=== PATIENT | female | born 1940 | race Caucasian/White ===

== ENCOUNTER 2016-11-21 18:10 | Emergency (ER) | payer MEDICARE, BC, OTHER ==
[2016-11-21] MEDS ORDERED: Famotidine 20 MG/2 ML SDV IVPUSH ONE (18:16)
[2016-11-21] MEDS ORDERED: Aspirin 81 MG Tab.Chew PO ONE (18:16)
[2016-11-21] MEDS ORDERED: Sodium Chloride 0.9% 2.5 ML Syringe FLUSH PRN (18:16)
[2016-11-21] MEDS ORDERED: Albuterol/Ipratropium 3.0-0.5 MG/3 ML Neb Soln NEB ONE (18:20)
[2016-11-21] MEDS ORDERED: HYDROmorphone 1 MG/ML Syringe IVPUSH ONE (18:38)
--- NOTE | 2016-11-21 18:47 | EDM.PDOC ---
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 Past medical history: As per history of present illness and as reviewed below otherwise noncontributory. Surgical history: As per history of present illness and as reviewed below otherwise noncontributory. Social history: No reported history of drug or alcohol abuse. Family history: As per history of present illness and as reviewed below otherwise noncontributory. Physical exam: Alert and oriented female who states she coughs more when she is lying on her back. HEENT: Atraumatic, normocehpalic, pupils reactive, negative for conjunctival pallor or scleral icterus, mucous membranes moist, throat clear, neck supple, nontender, trachea midline. Lungs: Clear to auscultation, breath sounds equal bilaterally, chest non tender. Slightly diminished Heart: S1S2, regular, negative for clicks, rubs, or JVD. Abdomen: Soft, nondistended, nontender. Negative for masses or hepatossplenmegaly. Negative for costovertebral tenderness. Pelvis: Stable nontender. Genitourinary: Deferred. Rectal: Deferred Extremities: Atraumatic, negative for cords or calf pain. Neurovascular unremarkable. Neuro: Awake, alert, oriented. Cranial nerves II through XII unremarkable. Cerebellum unremarkable. Motor and sensory unremarkable throughout. Exam nonfocal. Diagnostics: [CBC CMP amylase lipase chest x-ray EKG] Therapeutics: [Dilaudid] Impression: [Cough and back pain] Plan: [Home Tessalon Perles for cough Pain medication that you have at home Follow-up with your primary care provider next week ] Definitive disposition and diagnosis as appropriate pending reevaluation and review of above. Onset: Today, Sudden Duration: Hour(s):, Getting Worse Location: Reports: Chest Quality: Reports: Ache, Pressure Severity: Moderate Worsens with: Reports: Other (laying on back) Associated Symptoms: Reports: Cough - Related Data Allergies Allergy/AdvReac Type Severity Reaction Status Date / Time codeine Allergy Hives Verified 11/21/16 19:05 Home Meds: Home Meds Benzonatate [Tessalon Perles] 100 mg PO QID #20 cap 11/21/16 [Rx] Capsaicin/Menthol [Salonpas Gel-Patch Hot] 11/21/16 [History] Clopidogrel [Plavix] 11/21/16 [History] Metoprolol Tartrate 11/21/16 [History] PARoxetine HCl [Paroxetine HCl] 11/21/16 [History] Simvastatin [Zocor] 11/21/16 [History] oxyCODONE ER [OxyCONTIN] 10 mg 11/21/16 [History] ED ROS GENERAL - Review of Systems Review Of Systems: ROS reveals no pertinent complaints other than HPI. ED EXAM, GENERAL - Physical Exam Exam: See Below (see dictation) Course - Vital Signs Last Recorded V/S: Last Vital Signs Temp 36.2 C 11/21/16 18:24 Pulse 88 11/21/16 19:11 Resp 17 11/21/16 19:11 BP 150/96 H 11/21/16 19:11 Pulse Ox 95 11/21/16 19:11 - Orders/Labs/Meds Orders: Active Orders 24 hr Category Date Time Status Cardiac Monitoring [RC] . DIRECTED Care 11/21/16 18:16 Active EKG Documentation Completion [RC] STAT Care 11/21/16 18:17 Active Oxygen Therapy [RC] ASDIRECTED Care 11/21/16 18:16 Active Pulse Oximetry [RC] ASDIRECTED Care 11/21/16 18:16 Active RT Aerosol Therapy [RC] ASDIRECTED Care 11/21/16 18:20 Active Chest 1V Frontal [CR] Stat Exams 11/21/16 18:16 Taken Sodium Chloride 0.9% [Saline Flush] Med 11/21/16 18:16 Active 10 ml FLUSH ASDIRECTED PRN Sodium Chloride 0.9% [Saline Flush] Med 11/21/16 18:16 Active 2.5 ml FLUSH ASDIRECTED PRN Saline Lock Insert [OM.PC] Stat Oth 11/21/16 18:16 Ordered Medication Orders Sodium Chloride (Saline Flush) 10 ml FLUSH ASDIRECTED PRN PRN Reason: Keep Vein Open Last Admin: 11/21/16 19:08 Dose: 10 ml Admin: 11/21/16 19:06 Dose: 10 ml Sodium Chloride (Saline Flush) 2.5 ml FLUSH ASDIRECTED PRN PRN Reason: Keep Vein Open Labs: Laboratory Tests 11/21/16 11/21/16 11/21/16 Range/Units 18:25 18:25 18:25 WBC 8.25 (4.0-11.0) K/uL RBC 4.43 (4.30-5.90) M/uL Hgb 13.0 (12.0-16.0) g/dL Hct 40.0 (36.0-46.0) % MCV 90.3 (80.0-98.0) fL MCH 29.3 (27.0-32.0) pg MCHC 32.5 (31.0-37.0) g/dL RDW Std Deviation 45.3 (28.0-62.0) fl RDW Coeff of Tray 14 (11.0-15.0) % Plt Count 400 (150-400) K/uL MPV 9.20 (7.40-12.00) fL Neut % (Auto) 60.6 (48.0-80.0) % Lymph % (Auto) 24.8 (16.0-40.0) % [place] % (Auto) 9.1 (0.0-15.0) % Eos % (Auto) 5.0 (0.0-7.0) % Baso % (Auto) 0.5 (0.0-1.5) % Neut # (Auto) 5.0 (1.4-5.7) K/uL Lymph # (Auto) 2.1 (0.6-2.4) K/uL [place] # (Auto) 0.8 (0.0-0.8) K/uL Eos # (Auto) 0.4 (0.0-0.7) K/uL Baso # (Auto) 0.0 (0.0-0.1) K/uL Nucleated RBC % 0.0 /100WBC Nucleated RBCs # 0 K/uL Sodium 142 (136-146) mmol/L Potassium 3.9 (3.5-5.1) mmol/L Chloride 108 (98-110) mmol/L Carbon Dioxide 23 (21-31) mmol/L BUN 14 (6.0-23.0) mg/dL Creatinine 0.9 (0.6-1.5) mg/dL Est Cr Clr Drug Dosing TNP Estimated GFR (MDRD) > 60.0 ml/min Glucose 107 (60-110) mg/dL Calcium 9.5 (8.8-10.8) mg/dL Total Bilirubin 0.6 (0.1-1.5) mg/dL AST 58 H (5-40) IU/L ALT 52 (8-54) IU/L Alkaline Phosphatase 81 (40-150) Troponin I < 0.10 (0.0-0.29) NG/ML Total Protein 7.6 (6.0-8.0) g/dL Albumin 3.8 (3.4-4.8) g/dL Globulin 3.8 H (2.0-3.5) g/dL Albumin/Globulin Ratio 1.0 L (1.3-2.8) Amylase 90 (10-90) U/L Lipase 52 (7-80) U/L Meds: Medications Generic Name Dose Route Start Last Admin Trade Name Freq PRN Reason Stop Dose Admin Sodium Chloride 10 ml 11/21/16 18:16 11/21/16 19:08 Saline Flush FLUSH 10 ml ASDIRECTED PRN Administration Keep Vein Open Sodium Chloride 2.5 ml 11/21/16 18:16 Saline Flush FLUSH ASDIRECTED PRN Keep Vein Open Discontinued Medications Generic Name Dose Route Start Last Admin Trade Name Freq PRN Reason Stop Dose Admin Albuterol/Ipratropium 3 ml 11/21/16 18:20 11/21/16 18:27 Duoneb 3.0-0.5 Mg/3 Ml NEB 11/21/16 18:21 3 ml ONETIME ONE Administration Aspirin 324 mg 11/21/16 18:16 11/21/16 18:28 Aspirin PO 11/21/16 18:17 Not Given ONETIME ONE Famotidine 20 mg 11/21/16 18:16 11/21/16 18:27 Pepcid IVPUSH 11/21/16 18:17 20 mg ONETIME ONE Administration Hydromorphone HCl 1 mg 11/21/16 18:38 11/21/16 19:09 Dilaudid IVPUSH 11/21/16 18:39 1 mg ONETIME ONE Administration Morphine Sulfate 2 mg 11/21/16 19:02 Morphine IV 11/21/16 19:03 ONETIME ONE Departure - Departure Time of Disposition: 19:38 Disposition: Home, Self-Care 01 Condition: Good Clinical Impression: Muscle strain, Cough - Discharge Information Prescriptions: Benzonatate [Tessalon Perles] 100 mg PO QID #20 cap Forms: ED Department Discharge Additional Instructions: The following information is given to patients seen in the emergency department who are being discharged to home. This information is to outline your options for follow-up care. We provide all patients seen in our emergency department with a follow-up referral. The need for follow-up, as well as the timing and circumstances, are variable depending upon the specifics of your emergency department visit. If you don't have a primary care physician on staff, we will provide you with a referral. We always advise you to contact your personal physician following an emergency department visit to inform them of the circumstance of the visit and for follow-up with them and/or the need for any referrals to a consulting specialist. The emergency department will also refer you to a specialist when appropriate. This referral assures that you have the opportunity for followup care with a specialist. All of these measure are taken in an effort to provide you with optimal care, which includes your followup. Under all circumstances we always encourage you to contact your private physician who remains a resource for coordinating your care. When calling for followup care, please make the office aware that this follow-up is from your recent emergency room visit. If for any reason you are refused follow-up, please contact the [facility] emergency department at and asked to speak to the emergency department charge nurse. No gross abnormalities were noted on your examination today Do have a slight cough You do have a muscle strain to your back Tessalon Perles can be utilized to help with the cough prescription has been written Your pain medications you have at home are fine to use - My Orders Last 24 Hours: My Active Orders 11/21/16 18:16 Cardiac Monitoring [RC] . DIRECTED Oxygen Therapy [RC] ASDIRECTED Pulse Oximetry [RC] ASDIRECTED Chest 1V Frontal [CR] Stat Sodium Chloride 0.9% [Saline Flush] 10 ml FLUSH ASDIRECTED PRN Sodium Chloride 0.9% [Saline Flush] 2.5 ml FLUSH ASDIRECTED PRN Saline Lock Insert [OM.PC] Stat 11/21/16 18:17 EKG Documentation Completion [RC] STAT 11/21/16 18:20 RT Aerosol Therapy [RC] ASDIRECTED - Assessment/Plan Last 24 Hours: My Active Orders 11/21/16 18:16 Cardiac Monitoring [RC] . DIRECTED Oxygen Therapy [RC] ASDIRECTED Pulse Oximetry [RC] ASDIRECTED Chest 1V Frontal [CR] Stat Sodium Chloride 0.9% [Saline Flush] 10 ml FLUSH ASDIRECTED PRN Sodium Chloride 0.9% [Saline Flush] 2.5 ml FLUSH ASDIRECTED PRN Saline Lock Insert [OM.PC] Stat 11/21/16 18:17 EKG Documentation Completion [RC] STAT 11/21/16 18:20 RT Aerosol Therapy [RC] ASDIRECTED
[2016-11-21] MEDS ORDERED: Morphine 10 MG/ML Syringe IV ONE (19:02)
[2016-11-21] MEDS: Sodium Chloride 0.9% 10 ML Syringe FLUSH PRN ×2 (19:06→19:08)
[2016-11-21 19:08] LABS: CHLORIDE,CL 108 mmol/L (98-110); SODIUM,NA 142 mmol/L (136-146)
[2016-11-21 20:03] VITALS: BP 116/78
--- NOTE | 2016-11-22 09:09 | CR ---
EXAM DATE: 11/21/16 PATIENT'S AGE: 76 Patient: GAMALIEL SHERIFF Facility: [place], [place] Site . Site : [id number] Study: XRay Chest [id number] 6:38:45 PM Ordering Physician: Doctor Vallejo Final Report: INDICATION: Chest pain. TECHNIQUE: Chest radiograph 1 view COMPARISON: 05/08/2011. FINDINGS: Interval median sternotomy and CABG with new thoracic aortic stent graft. Lungs are clear. No pulmonary edema pattern, pleural effusion, or pneumothorax. IMPRESSION: 1. Interval postsurgical changes in the chest with interval stent graft involving descending thoracic aorta. No acute abnormality evident. No congestive heart failure pattern. Dictated by Tip Delong MD @ 11/21/2016 7:12:21 PM Dictated by: Tip Delong MD @ 11/21/2016 19:12:26 (Electronic Signature) Report Signed by Proxy. [email or web address]
== END 2016-11-21 20:00 | disposition home or self-care (01) ==
LOC: MW.ED 18:10
DX: S39.012A Strain of muscle, fascia and tendon of lower back, initial encounter (principal); R05 Cough; Z88.5 Allergy status to narcotic agent; Z95.1 Presence of aortocoronary bypass graft; X58.XXXA Exposure to other specified factors, initial encounter
CPT/HCPCS: 36415; 71010; 80053; 82150; 83690; 84484; 85025; 96374; 96375; 99284; J1170

== ENCOUNTER 2017-09-16 19:40 | Emergency (ER) | payer MEDICARE, BC, OTHER ==
--- NOTE | 2017-09-16 19:51 | EDM.PDOC ---
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 Naik in [place], [place] Patient sees Dr. Garcia in [place] for cardiology Review of Systems: As per history of present illness and below otherwise all systems reviewed and negative. Past medical history: As per history of present illness and as reviewed below otherwise noncontributory. Surgical history: As per history of present illness and as reviewed below otherwise noncontributory. Social history: No reported history of drug or alcohol abuse. Family history: As per history of present illness and as reviewed below otherwise noncontributory. Physical exam: Alert female who is alert and oriented has shortness of breath with speaking full sentences. HEENT: Atraumatic, normocehpalic, pupils reactive, negative for conjunctival pallor or scleral icterus, mucous membranes moist, throat clear, neck supple, nontender, trachea midline. Lungs: Clear to auscultation, breath sounds equal bilaterally, chest non tender. Heart: S1S2, regular, negative for clicks, rubs, or JVD. Abdomen: Soft, nondistended, nontender. Negative for masses or hepatossplenmegaly. Negative for costovertebral tenderness. Pelvis: Stable nontender. Genitourinary: Deferred. Rectal: Deferred Extremities: Atraumatic, negative for cords or calf pain. Minor edema bilaterally to her legs Neurovascular unremarkable. Neuro: Awake, alert, oriented. Cranial nerves II through XII unremarkable. Cerebellum unremarkable. Motor and sensory unremarkable throughout. Exam nonfocal. Patient improved after respiratory treatment. Increased air exchange Discussed her condition with her daughter at bedside QUESTIONS were answered to their satisfaction Diagnostics: []CBC CMP amylase lipase EKG chest x-ray: Therapeutics: []DuoNeb Impression: []Shortness of breath CHF Pedal edema UTI Plan: [] Discharge home Follow up with Dr. Garcia Prescription given for Macrobid 1 twice a day 10 days Prescription admission for Ventolin inhaler 2 puffs 3 times a day when necessary shortness of breath Stand on your scale daily F opportunity half pounds take one Lasix Prescription for Lasix 20 mg one daily as instructed number of 10 no refill Return to the emergency department as directed and discussed Definitive disposition and diagnosis as appropriate pending reevaluation and review of above. Onset: Gradual Duration: Day(s): - Related Data Allergies Allergy/AdvReac Type Severity Reaction Status Date / Time codeine Allergy Hives Verified 09/16/17 19:53 Home Meds: Home Meds Metoprolol Tartrate mg PO BID 11/21/16 [History] PARoxetine HCl [Paroxetine HCl] 11/21/16 [History] Simvastatin [Zocor] 11/21/16 [History] Past Medical History HEENT History: Reports: None Cardiovascular History: Reports: Aneurysm, Bypass, High Cholesterol, Hypertension, Other (See Below) Other Cardiovascular History: was at [place]. one week ago and had a "new procedure where they tied off 4 aortic aneurysms" Respiratory History: Reports: Other (See Below) Other Respiratory History: wears O2 at 1L per NC at night Gastrointestinal History: Reports: None Genitourinary History: Reports: None LOAD BLOCKER History: Reports: None Musculoskeletal History: Reports: None Neurological History: Reports: None Psychiatric History: Reports: Anxiety, Depression Endocrine/Metabolic History: Reports: None Hematologic History: Reports: None Immunologic History: Reports: None Oncologic (Cancer) History: Reports: None Dermatologic History: Reports: None - Infectious Disease History Infectious Disease History: Reports: None - Past Surgical History Head Surgeries/Procedures: Reports: None HEENT Surgical History: Reports: None Respiratory Surgical History: Reports: None GI Surgical History: Reports: None Female Surgical History: Reports: None Neurological Surgical History: Reports: None Musculoskeletal Surgical History: Reports: None Social & Family History - Family History Family Medical History: Noncontributory ED ROS GENERAL - Review of Systems Review Of Systems: ROS reveals no pertinent complaints other than HPI. ED EXAM, GENERAL - Physical Exam Exam: See Below (See dictation) EKG INTERPRETATION EKG Date: 09/16/17 Rhythm: NSR Comparison: No Change Course - Vital Signs Last Recorded V/S: Last Vital Signs Temp 35.8 C 09/16/17 19:55 Pulse 95 09/16/17 20:32 Resp 20 09/16/17 20:32 BP 148/61 H 09/16/17 20:32 Pulse Ox 95 09/16/17 20:32 - Orders/Labs/Meds Orders: Active Orders 24 hr Category Date Time Status Cardiac Monitoring [RC] . DIRECTED Care 09/16/17 19:52 Active EKG Documentation Completion [RC] STAT Care 09/16/17 19:52 Active Oxygen Therapy, ED [RC] ASDIRECTED Care 09/16/17 19:52 Active RT Aerosol Therapy [RC] ASDIRECTED Care 09/16/17 20:51 Active Chest 1V Frontal [CR] Stat Exams 09/16/17 19:52 Taken CULTURE URINE [RM] Stat Lab 09/16/17 20:35 Ordered UA W/MICROSCOPIC [URIN] Stat Lab 09/16/17 20:35 Ordered Sodium Chloride 0.9% [Saline Flush] Med 09/16/17 19:52 Active 10 ml FLUSH ASDIRECTED PRN Sodium Chloride 0.9% [Saline Flush] Med 09/16/17 19:52 Active 2.5 ml FLUSH ASDIRECTED PRN Saline Lock Insert [OM.PC] Stat Oth 09/16/17 19:52 Ordered Medication Orders Sodium Chloride (Saline Flush) 10 ml FLUSH ASDIRECTED PRN PRN Reason: Keep Vein Open Sodium Chloride (Saline Flush) 2.5 ml FLUSH ASDIRECTED PRN PRN Reason: Keep Vein Open Labs: Laboratory Tests 09/16/17 09/16/17 09/16/17 Range/Units 20:00 20:00 20:00 WBC 7.82 (4.0-11.0) K/uL RBC 4.42 (4.30-5.90) M/uL Hgb 10.4 L (12.0-16.0) g/dL Hct 33.9 L (36.0-46.0) % MCV 76.7 L (80.0-98.0) fL MCH 23.5 L (27.0-32.0) pg MCHC 30.7 L (31.0-37.0) g/dL RDW Std Deviation 44.4 (28.0-62.0) fl RDW Coeff of Tray 16 H (11.0-15.0) % Plt Count 281 (150-400) K/uL MPV 9.20 (7.40-12.00) fL Neut % (Auto) 58.3 (48.0-80.0) % Lymph % (Auto) 29.8 (16.0-40.0) % [place] % (Auto) 7.8 (0.0-15.0) % Eos % (Auto) 3.6 (0.0-7.0) % Baso % (Auto) 0.5 (0.0-1.5) % Neut # (Auto) 4.6 (1.4-5.7) K/uL Lymph # (Auto) 2.3 (0.6-2.4) K/uL [place] # (Auto) 0.6 (0.0-0.8) K/uL Eos # (Auto) 0.3 (0.0-0.7) K/uL Baso # (Auto) 0.0 (0.0-0.1) K/uL Nucleated RBC % 0.0 /100WBC Nucleated RBCs # 0 K/uL INR 1.00 Sodium 141 (136-145) mmol/L Potassium 4.2 (3.5-5.1) mmol/L Chloride 109 H (98-107) mmol/L Carbon Dioxide 24.2 (21.0-32.0) mmol/L BUN 16 (7.0-18.0) mg/dL Creatinine 1.0 (0.6-1.0) mg/dL Est Cr Clr Drug Dosing 38.97 mL/min Estimated GFR (MDRD) 53.8 ml/min Glucose 117 H (74-106) mg/dL Calcium 8.9 (8.5-10.1) mg/dL Total Bilirubin 0.5 (0.2-1.0) mg/dL AST 30 (15-37) IU/L ALT 40 (14-63) IU/L Alkaline Phosphatase 82 (46-116) U/L Troponin I < 0.050 (0.000-0.056) ng/mL B-Natriuretic Peptide (<100) PG/ML Total Protein 7.0 (6.4-8.2) g/dL Albumin 3.5 (3.4-5.0) g/dL Globulin 3.5 (2.0-3.5) g/dL Albumin/Globulin Ratio 1.0 L (1.3-2.8) Amylase 50 (25-115) U/L Lipase 113 (73-393) U/L Urine Color Urine Appearance Urine pH (5.0-8.0) Ur Specific [place] (1.001-1.035) Urine Protein (NEGATIVE) mg/dL Urine Glucose (UA) (NEGATIVE) mg/dL Urine Ketones (NEGATIVE) mg/dL Urine Occult Blood (NEGATIVE) Urine Nitrite (NEGATIVE) Urine Bilirubin (NEGATIVE) Urine Urobilinogen (<2.0) EU/dL Ur Leukocyte Esterase (NEGATIVE) Urine RBC (0-2/HPF) Urine WBC (0-5/HPF) Ur Epithelial Cells (NONE-FEW) Urine Bacteria (NEGATIVE) 09/16/17 09/16/17 Range/Units 20:00 20:35 WBC (4.0-11.0) K/uL RBC (4.30-5.90) M/uL Hgb (12.0-16.0) g/dL Hct (36.0-46.0) % MCV (80.0-98.0) fL MCH (27.0-32.0) pg MCHC (31.0-37.0) g/dL RDW Std Deviation (28.0-62.0) fl RDW Coeff of Tray (11.0-15.0) % Plt Count (150-400) K/uL MPV (7.40-12.00) fL Neut % (Auto) (48.0-80.0) % Lymph % (Auto) (16.0-40.0) % [place] % (Auto) (0.0-15.0) % Eos % (Auto) (0.0-7.0) % Baso % (Auto) (0.0-1.5) % Neut # (Auto) (1.4-5.7) K/uL Lymph # (Auto) (0.6-2.4) K/uL [place] # (Auto) (0.0-0.8) K/uL Eos # (Auto) (0.0-0.7) K/uL Baso # (Auto) (0.0-0.1) K/uL Nucleated RBC % /100WBC Nucleated RBCs # K/uL INR Sodium (136-145) mmol/L Potassium (3.5-5.1) mmol/L Chloride (98-107) mmol/L Carbon Dioxide (21.0-32.0) mmol/L BUN (7.0-18.0) mg/dL Creatinine (0.6-1.0) mg/dL Est Cr Clr Drug Dosing mL/min Estimated GFR (MDRD) ml/min Glucose (74-106) mg/dL Calcium (8.5-10.1) mg/dL Total Bilirubin (0.2-1.0) mg/dL AST (15-37) IU/L ALT (14-63) IU/L Alkaline Phosphatase (46-116) U/L Troponin I (0.000-0.056) ng/mL B-Natriuretic Peptide 161 H (<100) PG/ML Total Protein (6.4-8.2) g/dL Albumin (3.4-5.0) g/dL Globulin (2.0-3.5) g/dL Albumin/Globulin Ratio (1.3-2.8) Amylase (25-115) U/L Lipase (73-393) U/L Urine Color YELLOW Urine Appearance SLT CLOUDY Urine pH 6.0 (5.0-8.0) Ur Specific [place] 1.020 (1.001-1.035) Urine Protein NEGATIVE (NEGATIVE) mg/dL Urine Glucose (UA) NEGATIVE (NEGATIVE) mg/dL Urine Ketones NEGATIVE (NEGATIVE) mg/dL Urine Occult Blood SMALL H (NEGATIVE) Urine Nitrite POSITIVE H (NEGATIVE) Urine Bilirubin NEGATIVE (NEGATIVE) Urine Urobilinogen 0.2 (<2.0) EU/dL Ur Leukocyte Esterase SMALL (NEGATIVE) Urine RBC 0-1 (0-2/HPF) Urine WBC 15-18 (0-5/HPF) Ur Epithelial Cells MODERATE (NONE-FEW) Urine Bacteria 1+ H (NEGATIVE) Meds: Medications Generic Name Dose Route Start Last Admin Trade Name Freq PRN Reason Stop Dose Admin Sodium Chloride 10 ml 09/16/17 19:52 Saline Flush FLUSH ASDIRECTED PRN Keep Vein Open Sodium Chloride 2.5 ml 09/16/17 19:52 Saline Flush FLUSH ASDIRECTED PRN Keep Vein Open Discontinued Medications Generic Name Dose Route Start Last Admin Trade Name Freq PRN Reason Stop Dose Admin Albuterol/Ipratropium 3 ml 05/21/18 20:51 09/16/17 21:16 Duoneb 3.0-0.5 Mg/3 Ml NEB 09/16/17 20:52 3 ml ONETIME ONE Administration Departure - Departure Time of Disposition: 21:45 Disposition: Home, Self-Care 01 Condition: Good Clinical Impression: Shortness of breath Congestive heart failure Qualifiers: Heart failure type: unspecified Heart failure chronicity: acute Qualified Code( s): I50.9 - Heart failure, unspecified UTI (urinary tract infection) Qualifiers: Urinary tract infection type: acute cystitis Hematuria presence: with hematuria Qualified Code(s): N30.01 - Acute cystitis with hematuria - Discharge Information Instructions: Shortness of Breath, Adult, [id number], Antibiotic Medicine, Adult, Urinary Tract Infection, Adult, [id number] Referrals: PCP,None [Primary Care Provider] - Forms: ED Department Discharge Additional Instructions: The following information is given to patients seen in the emergency department who are being discharged to home. This information is to outline your options for follow-up care. We provide all patients seen in our emergency department with a follow-up referral. The need for follow-up, as well as the timing and circumstances, are variable depending upon the specifics of your emergency department visit. If you don't have a primary care physician on staff, we will provide you with a referral. We always advise you to contact your personal physician following an emergency department visit to inform them of the circumstance of the visit and for follow-up with them and/or the need for any referrals to a consulting specialist. The emergency department will also refer you to a specialist when appropriate. This referral assures that you have the opportunity for followup care with a specialist. All of these measure are taken in an effort to provide you with optimal care, which includes your followup. Under all circumstances we always encourage you to contact your private physician who remains a resource for coordinating your care. When calling for followup care, please make the office aware that this follow-up is from your recent emergency room visit. If for any reason you are refused follow-up, please contact the [facility] emergency department at and asked to speak to the emergency department charge nurse. You had a DuoNeb for your shortness of breath EKG was unremarkable SHe had some congestive heart failure Prescription has been written for Macrobid 100 mg twice a day 10 days Prescription written for Diflucan 150 mg one tablet at sign of yeast infection take a second tablet 3 days later Prescription for Lasix 20 milligrams one tablet in the morning if up to and a half pounds Trial with some DONG stockings on at night off in the morning Return to the emergency department as directed and discussed Follow-up with Dr. Garcia for reevaluation See your doctor in [place] this week - My Orders Last 24 Hours: My Active Orders 09/16/17 19:52 Cardiac Monitoring [RC] . DIRECTED EKG Documentation Completion [RC] STAT Oxygen Therapy, ED [RC] ASDIRECTED Chest 1V Frontal [CR] Stat Sodium Chloride 0.9% [Saline Flush] 10 ml FLUSH ASDIRECTED PRN Sodium Chloride 0.9% [Saline Flush] 2.5 ml FLUSH ASDIRECTED PRN Saline Lock Insert [OM.PC] Stat 09/16/17 20:35 CULTURE URINE [RM] Stat UA W/MICROSCOPIC [URIN] Stat 09/16/17 20:51 RT Aerosol Therapy [RC] ASDIRECTED - Assessment/Plan Last 24 Hours: My Active Orders 09/16/17 19:52 Cardiac Monitoring [RC] . DIRECTED EKG Documentation Completion [RC] STAT Oxygen Therapy, ED [RC] ASDIRECTED Chest 1V Frontal [CR] Stat Sodium Chloride 0.9% [Saline Flush] 10 ml FLUSH ASDIRECTED PRN Sodium Chloride 0.9% [Saline Flush] 2.5 ml FLUSH ASDIRECTED PRN Saline Lock Insert [OM.PC] Stat 09/16/17 20:35 CULTURE URINE [RM] Stat UA W/MICROSCOPIC [URIN] Stat 09/16/17 20:51 RT Aerosol Therapy [RC] ASDIRECTED
[2017-09-16] MEDS ORDERED: Sodium Chloride 0.9% 2.5 ML Syringe FLUSH PRN (19:52)
[2017-09-16] MEDS ORDERED: Sodium Chloride 0.9% 10 ML Syringe FLUSH PRN (19:52)
[2017-09-16 20:38] LABS: CHLORIDE,CL 109 mmol/L (98-107); SODIUM,NA 141 mmol/L (136-145)
[2017-09-16] MEDS ORDERED: Albuterol/Ipratropium 3.0-0.5 MG/3 ML Neb Soln NEB ONE (20:51)
[2017-09-17 00:36] VITALS: BP 145/64
--- NOTE | 2017-09-17 14:38 | CR ---
EXAM DATE: 09/16/17 PATIENT'S AGE: 77 Patient: GAMALIEL SHERIFF Facility: [place], [place] Site . Site : [id number] Study: XRay Chest [id number]/21/[id number] 9:06:31 PM Ordering Physician: Doctor Vallejo Final Report: INDICATION: Shortness of breath. COMPARISON: 11/21/2016. FINDINGS/IMPRESSION: Lungs are clear of acute infiltrate and no acute intrathoracic abnormalities are demonstrated. Upper normal heart size appears unchanged. Postoperative changes of median sternotomy, CABG, and descending aortic endograft placement are again demonstrated. Dictated by Kang Frey MD @ 09/16/2017 9:19:38 PM Dictated by: Kang Frey MD @ 09/16/2017 21:19:53 (Electronic Signature) Report Signed by Proxy. [facility]
== END 2017-09-16 22:00 | disposition home or self-care (01) ==
LOC: MW.ED 19:40
DX: I11.0 Hypertensive heart disease with heart failure (principal); I50.9 Heart failure, unspecified; N30.01 Acute cystitis with hematuria; R60.0 Localized edema; I25.810 Atherosclerosis of coronary artery bypass graft(s) without angina pectoris; E78.00 Pure hypercholesterolemia, unspecified; F41.9 Anxiety disorder, unspecified; F32.9 Major depressive disorder, single episode, unspecified; Z88.5 Allergy status to narcotic agent; Z79.899 Other long term (current) drug therapy
CPT/HCPCS: 36415; 71045; 71045-26; 80053; 81001; 82150; 83690; 83880; 84484; 85025; 85610; 87086; 87088; 87186; 93005; 94640; 99285-25

== ENCOUNTER 2017-10-18 20:11 | Emergency (ER) | payer MEDICARE, BC, OTHER ==
--- NOTE | 2017-10-18 20:53 | EDM.PDOC ---
ED HPI GENERAL MEDICAL PROBLEM - General Chief Complaint: Skin Complaint Stated Complaint: SWOLLEN ARM FROM SHOT Time Seen by Provider: 10/18/17 20:44 - History of Present Illness INITIAL COMMENTS - FREE TEXT/NARRATIVE: HISTORY AND PHYSICAL: History of present illness: The patient is a 77-year-old female with a history of hypertension hypercholesterolemia coronary artery disease with CABG who follows at [facility] and received her pneumonia shot yesterday at the clinic. She says that after the shot she had a very sore left arm and that she noticed some redness yesterday but today it seemed worse and she was concerned. She no longer has any pain in the arm but there is still pinkish redness and she wanted to be evaluated. She has no systemic complaints and has no inability to use her left arm. She has no neurosensory changes distally no weakness no numbness or tingling. She is only concerned about the visual appearance of it and thought he should get it checked. Review of systems: As per history of present illness and below otherwise all systems reviewed and negative. Past medical history: As per history of present illness and as reviewed below otherwise noncontributory. Surgical history: As per history of present illness and as reviewed below otherwise noncontributory. Social history: No reported history of drug or alcohol abuse. Family history: As per history of present illness and as reviewed below otherwise noncontributory. Physical exam: General: Well-developed well-nourished female who is nontoxic and vital signs were noted by me HEENT: Atraumatic, normocephalic, negative for conjunctival pallor or scleral icterus, mucous membranes moist, throat clear, neck supple, nontender, trachea midline. Lungs: Clear to auscultation, breath sounds equal bilaterally, chest nontender. Heart: S1S2, regular rate and rhythm no overt murmurs Abdomen: Soft, nondistended, nontender. NABS. Pelvis: For Genitourinary: Deferred. Rectal: Deferred. Extremities: Atraumatic, full range of motion without defects or deformities. There is some pinkish erythema noted at her soft tissue anterior humeral area which does not extend proximally past the inferior deltoid or distally past the elbow. It is soft and I marked it with a marker. The compartment is nontender and there is no fluctuance. Patient has full range of motion of this extremity without defects deformities or tenderness. The legs are negative for cords or calf pain. Neurovascular unremarkable. Neuro: Awake, alert, oriented. Cranial nerves II through XII unremarkable. Cerebellum unremarkable. Motor and sensory unremarkable throughout. Exam nonfocal. Diagnostics: [] Therapeutics: [] I discussed with the patient taking [id number] Benadryl and I marked the area to observe it closely for any changes. As there is no pain and she has no systemic complaints we will treat this as a localized reaction. Impression: Localized reaction to pneumonia shot stable Definitive disposition and diagnosis as appropriate pending reevaluation and review of above. - Related Data Allergies Allergy/AdvReac Type Severity Reaction Status Date / Time codeine Allergy Agitation Verified 10/18/17 20:39 Home Meds: Home Meds Metoprolol Tartrate 0 mg PO BID 11/21/16 [History] Simvastatin [Zocor] 0 mg PO ASDIRECTED 11/21/16 [History] Past Medical History HEENT History: Reports: None Cardiovascular History: Reports: Aneurysm, Bypass, High Cholesterol, Hypertension, Other (See Below) Other Cardiovascular History: was at [place]. one week ago and had a "new procedure where they tied off 4 aortic aneurysms" Respiratory History: Reports: Other (See Below) Other Respiratory History: wears O2 at 1L per NC at night Gastrointestinal History: Reports: None Genitourinary History: Reports: None MISSILE INSPECTOR History: Reports: None Musculoskeletal History: Reports: None Neurological History: Reports: None Psychiatric History: Reports: Anxiety, Depression Endocrine/Metabolic History: Reports: None Hematologic History: Reports: None Immunologic History: Reports: None Oncologic (Cancer) History: Reports: None Dermatologic History: Reports: None - Infectious Disease History Infectious Disease History: Reports: None - Past Surgical History Head Surgeries/Procedures: Reports: None HEENT Surgical History: Reports: None Respiratory Surgical History: Reports: None GI Surgical History: Reports: None Female Surgical History: Reports: None Neurological Surgical History: Reports: None Musculoskeletal Surgical History: Reports: None Social & Family History - Family History Family Medical History: Noncontributory ED ROS GENERAL - Review of Systems Review Of Systems: ROS reveals no pertinent complaints other than HPI. ED EXAM, SKIN/RASH Exam: See Below (See dictation) Course - Vital Signs Last Recorded V/S: Last Vital Signs Temp 36.4 C 10/18/17 20:36 Pulse 90 10/18/17 20:36 Resp 20 10/18/17 20:36 BP 144/66 H 10/18/17 20:36 Pulse Ox 96 10/18/17 20:36 Departure - Departure Time of Disposition: 20:51 Disposition: Home, Self-Care 01 Condition: Good Clinical Impression: Local reaction to immunization Qualifiers: Encounter type: initial encounter Qualified Code(s): T88.1XXA - Other complications following immunization, not elsewhere classified, initial encounter - Discharge Information Referrals: PCP,None [Primary Care Provider] - Additional Instructions: The following information is given to patients seen in the emergency department who are being discharged to home. This information is to outline your options for follow-up care. We provide all patients seen in our emergency department with a follow-up referral. The need for follow-up, as well as the timing and circumstances, are variable depending upon the specifics of your emergency department visit. If you don't have a primary care physician on staff, we will provide you with a referral. We always advise you to contact your personal physician following an emergency department visit to inform them of the circumstance of the visit and for follow-up with them and/or the need for any referrals to a consulting specialist. The emergency department will also refer you to a specialist when appropriate. This referral assures that you have the opportunity for followup care with a specialist. All of these measure are taken in an effort to provide you with optimal care, which includes your followup. Under all circumstances we always encourage you to contact your private physician who remains a resource for coordinating your care. When calling for followup care, please make the office aware that this follow-up is from your recent emergency room visit. If for any reason you are refused follow-up, please contact the [facility] emergency department at and ask to speak to the emergency department charge nurse. [facility] Primary care- Internal Medicine and Family [address] [id number] Please continue to monitor the area of redness and elevate the area and place ice as you choose. Use [id number] Benadryl for the next 1-2 days. Return to ER as needed and as discussed and call and follow-up with your clinic doctor or one of ours next week.
[2017-10-18 21:10] VITALS: BP 142/56
== END 2017-10-18 21:12 | disposition home or self-care (01) ==
LOC: MW.ED 20:11
DX: T88.1XXA Other complications following immunization, not elsewhere classified, initial encounter (principal); L53.0 Toxic erythema; I10 Essential (primary) hypertension
CPT/HCPCS: 99282

== ENCOUNTER 2019-05-26 18:16 | Observation (INO) | payer MEDICARE, OTHER ==
--- NOTE | 2019-05-26 18:20 | EDM.PDOC ---
ED HPI GENERAL MEDICAL PROBLEM - General Stated Complaint: HEART PROBLEM Time Seen by Provider: 05/26/19 18:19 Source of Information: Reports: Patient - History of Present Illness INITIAL COMMENTS - FREE TEXT/NARRATIVE: HISTORY AND PHYSICAL: History of present illness: [Presents with syncopal episode She had a episode of dizziness earlier today, she and her son were going [place] the [place] on [facility] she was walking towards the casino and had a syncopal episode she does not recall the event she fell to the ground no evidence of head injury however she did collapse she does not recall the incident Arrival she is alert interactive no fever nausea vomiting chills sweats no chest pain shortness of breath headache dizziness or palpitation no bowel or urine symptoms ] Review of systems: As per history of present illness and below otherwise all systems reviewed and negative. Past medical history: As per history of present illness and as reviewed below otherwise noncontributory. Surgical history: As per history of present illness and as reviewed below otherwise noncontributory. Social history: No reported history of drug or alcohol abuse. Family history: As per history of present illness and as reviewed below otherwise noncontributory. Physical exam: HEENT: Atraumatic, normocephalic, pupils reactive, negative for conjunctival pallor or scleral icterus, mucous membranes moist, throat clear, neck supple, nontender, trachea midline. Lungs: Clear to auscultation, breath sounds equal bilaterally, chest nontender. Heart: S1S2, regular, negative for clicks, rubs, or JVD. Abdomen: Soft, nondistended, nontender. Negative for masses or hepatosplenomegaly. Negative for costovertebral tenderness. Pelvis: Stable nontender. Genitourinary: Deferred. Rectal: Deferred. Extremities: Atraumatic, negative for cords or calf pain. Neurovascular unremarkable. Neuro: Awake, alert, oriented. Cranial nerves II through XII unremarkable. Cerebellum unremarkable. Motor and sensory unremarkable throughout. Exam nonfocal. Diagnostics: [See CMP UA troponin INR Chest 1 view Pelvis [address] head no contrast ] Therapeutics: [Saline kcl 20meq ] Impression: [Syncope Chronic history baseline ] Definitive disposition and diagnosis as appropriate pending reevaluation and review of above. Abdomen Pain Score (Numeric/FACES): 7 - Related Data Allergies Allergy/AdvReac Type Severity Reaction Status Date / Time codeine Allergy Agitation Verified 10/18/17 20:39 Home Meds: Home Meds Metoprolol Tartrate 0 mg PO BID 11/21/16 [History] Simvastatin [Zocor] 0 mg PO ASDIRECTED 11/21/16 [History] Past Medical History HEENT History: Reports: None Cardiovascular History: Reports: Aneurysm, Bypass, High Cholesterol, Hypertension, Other (See Below) Other Cardiovascular History: was at [place]. one week ago and had a "new procedure where they tied off 4 aortic aneurysms" Respiratory History: Reports: Other (See Below) Other Respiratory History: wears O2 at 1L per [place] at night Gastrointestinal History: Reports: None Genitourinary History: Reports: None SPORT INTERNSHIP History: Reports: None Musculoskeletal History: Reports: None Neurological History: Reports: None Psychiatric History: Reports: Anxiety, Depression Endocrine/Metabolic History: Reports: None Hematologic History: Reports: None Immunologic History: Reports: None Oncologic (Cancer) History: Reports: None Dermatologic History: Reports: None - Infectious Disease History Infectious Disease History: Reports: None - Past Surgical History Head Surgeries/Procedures: Reports: None HEENT Surgical History: Reports: None Respiratory Surgical History: Reports: None GI Surgical History: Reports: None Female Surgical History: Reports: None Neurological Surgical History: Reports: None Musculoskeletal Surgical History: Reports: None Social & Family History - Family History Family Medical History: Noncontributory - Caffeine Use Caffeine Use: Reports: Coffee ED ROS GENERAL - Review of Systems Review Of Systems: See Below ED EXAM, GENERAL - Physical Exam Exam: See Below Course - Vital Signs Last Recorded V/S: Last Vital Signs Temp 97.8 F 05/26/19 18:22 Pulse 110 H 05/26/19 18:22 Resp 22 H 05/26/19 18:22 BP 156/77 H 05/26/19 18:22 Pulse Ox 96 05/26/19 18:22 - Orders/Labs/Meds Orders: Active Orders 24 hr Category Date Time Status EKG Documentation Completion [RC] STAT Care 05/26/19 18:18 Active UA RFX BARAK AND CULT IF INDIC [URIN] Stat Lab 05/26/19 18:18 Ordered Sodium Chloride 0.9% [Normal Saline] 1,000 ml Med 05/26/19 18:30 Active IV STAT Medication Orders Sodium Chloride (Normal Saline) 1,000 mls @ 125 mls/hr IV STAT CARA Labs: Laboratory Tests 05/26/19 05/26/19 05/26/19 Range/Units 18:23 18:23 18:23 WBC 7.52 (4.0-11.0) K/uL RBC 4.67 (4.30-5.90) M/uL Hgb 9.8 L (12.0-16.0) g/dL Hct 34.0 L (36.0-46.0) % MCV 72.8 L (80.0-98.0) fL MCH 21.0 L (27.0-32.0) pg MCHC 28.8 L (31.0-37.0) g/dL RDW Std Deviation 51.8 (28.0-62.0) fl RDW Coeff of Tray 20 H (11.0-15.0) % Plt Count 274 (150-400) K/uL MPV 9.10 (7.40-12.00) fL Neut % (Auto) 67.1 (48.0-80.0) % Lymph % (Auto) 22.9 (16.0-40.0) % [place] % (Auto) 6.0 (0.0-15.0) % Eos % (Auto) 3.5 (0.0-7.0) % Baso % (Auto) 0.5 (0.0-1.5) % Neut # (Auto) 5.1 (1.4-5.7) K/uL Lymph # (Auto) 1.7 (0.6-2.4) K/uL [place] # (Auto) 0.5 (0.0-0.8) K/uL Eos # (Auto) 0.3 (0.0-0.7) K/uL Baso # (Auto) 0.0 (0.0-0.1) K/uL Nucleated RBC % 0.0 /100WBC Nucleated RBCs # 0 K/uL INR 0.98 Sodium 144 (136-145) mmol/L Potassium 2.6 L (3.5-5.1) mmol/L Chloride 103 (98-107) mmol/L Carbon Dioxide 25.1 (21.0-32.0) mmol/L BUN 12 (7.0-18.0) mg/dL Creatinine 1.0 (0.6-1.0) mg/dL Est Cr Clr Drug Dosing TNP Estimated GFR (MDRD) 53.5 ml/min Glucose 194 H (74-106) mg/dL Calcium 8.8 (8.5-10.1) mg/dL Total Bilirubin 0.6 (0.2-1.0) mg/dL AST 25 (15-37) IU/L ALT 26 (14-63) IU/L Alkaline Phosphatase 85 (46-116) U/L Troponin I < 0.050 (0.000-0.056) ng/mL Total Protein 7.4 (6.4-8.2) g/dL Albumin 3.6 (3.4-5.0) g/dL Globulin 3.8 (2.6-4.0) g/dL Albumin/Globulin Ratio 0.9 (0.9-1.6) Meds: Medications Generic Name Dose Route Start Last Admin Trade Name Freq PRN Reason Stop Dose Admin Sodium Chloride 1,000 mls @ 125 mls/hr 05/26/19 18:30 Normal Saline IV STAT CARA Discontinued Medications Generic Name Dose Route Start Last Admin Trade Name Freq PRN Reason Stop Dose Admin Potassium Chloride 20 meq 05/26/19 19:09 Klor-Con M20 PO 05/26/19 19:10 ONETIME ONE Departure - Departure Time of Disposition: 19:16 Disposition: Refer to Observation Condition: Fair Clinical Impression: Syncope and collapse - Discharge Information Referrals: PCP,Unobtain [Primary Care Provider] - Sepsis Event Note - Focused Exam Vital Signs: Vital Signs Temp Pulse Resp BP Pulse Ox 05/26/19 18:22 97.8 F 110 H 22 H 156/77 H 96 Date Exam was Performed: 05/26/19 Time Exam was Performed: 19:16 - My Orders Last 24 Hours: My Active Orders 05/26/19 18:18 EKG Documentation Completion [RC] STAT UA RFX BARAK AND CULT IF INDIC [URIN] Stat 05/26/19 18:30 Sodium Chloride 0.9% [Normal Saline] 1,000 ml IV STAT - Assessment/Plan Last 24 Hours: My Active Orders 05/26/19 18:18 EKG Documentation Completion [RC] STAT UA RFX BARAK AND CULT IF INDIC [URIN] Stat 05/26/19 18:30 Sodium Chloride 0.9% [Normal Saline] 1,000 ml IV STAT
[2019-05-26] MEDS ORDERED: Sodium Chloride 0.9% 1,000 ML IV SCH (18:30)
[2019-05-26 18:57] LABS: BLOOD UREA NITROGEN,BUN 12 mg/dL (7.0-18.0); CARBON DIOXIDE,CO2 25.1 mmol/L (21.0-32.0); CHLORIDE,CL 103 mmol/L (98-107); GLUCOSE RANDOM 194 mg/dL (74-106); POTASSIUM,K 2.6 mmol/L (3.5-5.1); SODIUM,NA 144 mmol/L (136-145)
--- NOTE | 2019-05-26 19:03 | CR ---
Pelvis: AP view of the pelvis was obtained. Comparison: No prior pelvis exam. Aortoiliac stent is noted. Mild joint space narrowing is seen within both hips. Sacroiliac joints appear normal. Mild vascular calcification is seen. No acute fracture or other abnormality is seen. Impression: 1. Findings as noted above. 2. Nothing acute is appreciated on AP pelvis study. Diagnostic code #2 This report was dictated in [place] Standard Time
--- NOTE | 2019-05-26 19:03 | CT ---
Head CT Technique: Multiple axial sections through the brain were obtained. Intravenous contrast was not utilized. Comparison: No prior intracranial imaging is available. Findings: Ventricles along with basal cisterns and sulci over the convexities are within normal limits for the patient's age. No known midline is seen.. Bone window settings were reviewed which shows no acute calvarial abnormality. Mastoid moderate mucosal thickening seen within hypoplastic mastoid sinuses. Minimal mucosal thickening noted within the ethmoid and frontal sinuses. Impression: 1. Sinus findings which are likely chronic. 2. No acute intracranial abnormality is identified. Diagnostic code #2 Study was dictated in [place] Time.
--- NOTE | 2019-05-26 19:03 | CR ---
Chest: AP view of the chest was obtained. Comparison: Prior chest x-ray of 09/16/17. Heart is mildly enlarged. Sternotomy noted. Previous CABG is seen. Aortic stent is noted. Lungs are clear with no acute parenchymal change. Bony structures are grossly intact. Impression: 1. Stable findings as noted above. 2. Nothing acute is appreciated. Diagnostic code #2 This report was dictated in [place] Standard Time
[2019-05-26] MEDS ORDERED: Potassium Chloride 20 MEQ Tab.ER PO ONE ×2 (19:09→19:54)
[2019-05-26] MEDS ORDERED: Albuterol/Ipratropium 3.0-0.5 MG/3 ML Neb Soln NEB PRN (19:51)
[2019-05-26] MEDS ORDERED: Acetaminophen 325 MG Tab PO PRN (19:51)
--- NOTE | 2019-05-26 20:04 | PCM.HP.2 ---
H&P History of Present Illness - General Date of Service: 05/26/19 Admit Problem/Dx: Admission Diagnosis/Problem Admission Diagnosis/Problem Syncope and collapse - History of Present Illness Initial Comments - Free Text/Narative: Patient is a 79 y/o F with PMH of CABG, CAD, Multiple aortic aneurysm s/p graft 3 years back, systolic CHF, possible vertebral artery stenosis who comes in for evaluation of Syncope. Patient states she has She states she has been feeling dizzy over several occasions but never had syncope. Today she was walking in a parking lot when she felt dizzy and passed out. Patient doesn't remember detail of the episode, although states she felt very "shaky and weak" . No evidence of head injury. Upon Arrival she was alert, denied no fever nausea vomiting chills sweats no chest pain, shortness of breath, headache dizziness or palpitation no bowel or urine symptoms. In the ER most of the lab work showed Hb 9.7, and hypokalemia, EKG shows sinus arrhythmia. Patient is being admitted for further management. Abdomen Pain Score (Numeric/FACES): 7 - Related Data Allergies/Adverse Reactions: Allergies Allergy/AdvReac Type Severity Reaction Status Date / Time codeine Allergy Agitation Verified 05/26/19 19:17 Home Medications: Home Meds Metoprolol Tartrate 0 mg PO BID 11/21/16 [History] Simvastatin [Zocor] 0 mg PO ASDIRECTED 11/21/16 [History] Clopidogrel Bisulfate [Clopidogrel] 75 mg PO DAILY 05/26/19 [History] Furosemide 40 mg PO DAILY 05/26/19 [History] Past Medical History HEENT History: Reports: None Cardiovascular History: Reports: Aneurysm, Bypass, High Cholesterol, Hypertension, Other (See Below) Other Cardiovascular History: was at [place]. one week ago and had a "new procedure where they tied off 4 aortic aneurysms" Respiratory History: Reports: Other (See Below) Other Respiratory History: wears O2 at 1L per [place] at night Gastrointestinal History: Reports: None Genitourinary History: Reports: None LINE PREP COOK History: Reports: None Musculoskeletal History: Reports: None Neurological History: Reports: None Psychiatric History: Reports: Anxiety, Depression Endocrine/Metabolic History: Reports: None Hematologic History: Reports: None Immunologic History: Reports: None Oncologic (Cancer) History: Reports: None Dermatologic History: Reports: None - Infectious Disease History Infectious Disease History: Reports: None - Past Surgical History Head Surgeries/Procedures: Reports: None HEENT Surgical History: Reports: None Respiratory Surgical History: Reports: None GI Surgical History: Reports: None Female Surgical History: Reports: None Neurological Surgical History: Reports: None Musculoskeletal Surgical History: Reports: None Social & Family History - Family History Family Medical History: Noncontributory - Tobacco Use Smoking Status *Q: Former Smoker Used Tobacco, but Quit: Yes Month/Year Tobacco Last Used: 1994 - Caffeine Use Caffeine Use: Reports: Coffee - Recreational Drug Use Recreational Drug Use: No H&P Review of Systems - Review of Systems: Review Of Systems: See Below General: Denies: Fever, Chills, Malaise HEENT: Denies: Dysphasia, Ear Pain Pulmonary: Denies: Shortness of Breath, Wheezing Cardiovascular: Reports: Syncope. Denies: Chest Pain, Palpitations, Dyspnea on Exertion, Orthopnea Gastrointestinal: Denies: Abdominal Pain, Anorexia Genitourinary: Denies: Dysuria, Frequency, Burning Musculoskeletal: Denies: Neck Pain, Shoulder Pain, Arm Pain Skin: Denies: Cyanosis, Jaundice Psychiatric: Denies: Confusion, Depression, Hallucinations Exam - Exam Exam: See Below - Vital Signs Vital Signs: Last Vital Signs Temp 36.6 C 05/26/19 18:22 Pulse 110 H 05/26/19 18:22 Resp 22 H 05/26/19 18:22 BP 156/77 H 05/26/19 18:22 Pulse Ox 96 05/26/19 18:22 Weight: 81.647 kg - Exam General: Alert, Oriented HEENT: Conjunctiva Clear Neck: Supple, Trachea Midline Lungs: Clear to Auscultation, Normal Respiratory Effort Cardiovascular: Regular Rate, Normal S1, Normal S2, Irregular Rhythm Peripheral Pulses: 3+: Dorsalis Pedis (L), Dorsalis Pedis (R) Skin: Warm - Patient Data Lab Results Last 24 hrs: Laboratory Results - last 24 hr 05/26/19 05/26/19 05/26/19 Range/Units 18:23 18:23 18:23 WBC 7.52 (4.0-11.0) K/uL RBC 4.67 (4.30-5.90) M/uL Hgb 9.8 L (12.0-16.0) g/dL Hct 34.0 L (36.0-46.0) % MCV 72.8 L (80.0-98.0) fL MCH 21.0 L (27.0-32.0) pg MCHC 28.8 L (31.0-37.0) g/dL RDW Std Deviation 51.8 (28.0-62.0) fl RDW Coeff of Tray 20 H (11.0-15.0) % Plt Count 274 (150-400) K/uL MPV 9.10 (7.40-12.00) fL Neut % (Auto) 67.1 (48.0-80.0) % Lymph % (Auto) 22.9 (16.0-40.0) % [place] % (Auto) 6.0 (0.0-15.0) % Eos % (Auto) 3.5 (0.0-7.0) % Baso % (Auto) 0.5 (0.0-1.5) % Neut # (Auto) 5.1 (1.4-5.7) K/uL Lymph # (Auto) 1.7 (0.6-2.4) K/uL [place] # (Auto) 0.5 (0.0-0.8) K/uL Eos # (Auto) 0.3 (0.0-0.7) K/uL Baso # (Auto) 0.0 (0.0-0.1) K/uL Nucleated RBC % 0.0 /100WBC Nucleated RBCs # 0 K/uL INR 0.98 Sodium 144 (136-145) mmol/L Potassium 2.6 L (3.5-5.1) mmol/L Chloride 103 (98-107) mmol/L Carbon Dioxide 25.1 (21.0-32.0) mmol/L BUN 12 (7.0-18.0) mg/dL Creatinine 1.0 (0.6-1.0) mg/dL Est Cr Clr Drug Dosing TNP Estimated GFR (MDRD) 53.5 ml/min Glucose 194 H (74-106) mg/dL Calcium 8.8 (8.5-10.1) mg/dL Magnesium (1.8-2.4) mg/dL Total Bilirubin 0.6 (0.2-1.0) mg/dL AST 25 (15-37) IU/L ALT 26 (14-63) IU/L Alkaline Phosphatase 85 (46-116) U/L Troponin I < 0.050 (0.000-0.056) ng/mL Total Protein 7.4 (6.4-8.2) g/dL Albumin 3.6 (3.4-5.0) g/dL Globulin 3.8 (2.6-4.0) g/dL Albumin/Globulin Ratio 0.9 (0.9-1.6) 05/26/19 Range/Units 18:23 WBC (4.0-11.0) K/uL RBC (4.30-5.90) M/uL Hgb (12.0-16.0) g/dL Hct (36.0-46.0) % MCV (80.0-98.0) fL MCH (27.0-32.0) pg MCHC (31.0-37.0) g/dL RDW Std Deviation (28.0-62.0) fl RDW Coeff of Tray (11.0-15.0) % Plt Count (150-400) K/uL MPV (7.40-12.00) fL Neut % (Auto) (48.0-80.0) % Lymph % (Auto) (16.0-40.0) % [place] % (Auto) (0.0-15.0) % Eos % (Auto) (0.0-7.0) % Baso % (Auto) (0.0-1.5) % Neut # (Auto) (1.4-5.7) K/uL Lymph # (Auto) (0.6-2.4) K/uL [place] # (Auto) (0.0-0.8) K/uL Eos # (Auto) (0.0-0.7) K/uL Baso # (Auto) (0.0-0.1) K/uL Nucleated RBC % /100WBC Nucleated RBCs # K/uL INR Sodium (136-145) mmol/L Potassium (3.5-5.1) mmol/L Chloride (98-107) mmol/L Carbon Dioxide (21.0-32.0) mmol/L BUN (7.0-18.0) mg/dL Creatinine (0.6-1.0) mg/dL Est Cr Clr Drug Dosing Estimated GFR (MDRD) ml/min Glucose (74-106) mg/dL Calcium (8.5-10.1) mg/dL Magnesium 1.9 (1.8-2.4) mg/dL Total Bilirubin (0.2-1.0) mg/dL AST (15-37) IU/L ALT (14-63) IU/L Alkaline Phosphatase (46-116) U/L Troponin I (0.000-0.056) ng/mL Total Protein (6.4-8.2) g/dL Albumin (3.4-5.0) g/dL Globulin (2.6-4.0) g/dL Albumin/Globulin Ratio (0.9-1.6) Result Diagrams: 05/26/19 18:23 05/26/19 18:23 Sepsis Event Note - Evaluation Sepsis Screening Result: No Definite Risk - Focused Exam Vital Signs: Vital Signs Temp Pulse Resp BP Pulse Ox 05/26/19 18:22 36.6 C 110 H 22 H 156/77 H 96 Date Exam was Performed: 05/27/19 Time Exam was Performed: 02:35 - Problem List (1) Syncope and collapse SNOMED Code(s): 221464869 ICD Code: R55 - SYNCOPE AND COLLAPSE Status: Acute Current Visit: Yes (2) Congestive heart failure SNOMED Code(s): 34363974 ICD Code: I50.9 - HEART FAILURE, UNSPECIFIED Status: Acute Current Visit : No Qualifiers: Heart failure type: unspecified Heart failure chronicity: acute Qualified Code(s): I50.9 - Heart failure, unspecified Problem List Initiated/Reviewed/Updated: Yes Orders Last 24hrs: Active Orders 24 hr Category Date Time Status Admission Status [Patient Status] [ADT] Stat ADT 05/26/19 19:17 Active Ambulate [RC] ASDIRECTED Care 05/26/19 19:51 Ordered EKG Documentation Completion [RC] STAT Care 05/26/19 18:18 Active Oxygen Therapy [RC] PRN Care 05/26/19 19:51 Ordered RT Aerosol Therapy [RC] ASDIRECTED Care 05/26/19 19:53 Ordered VTE/DVT Education [RC] PER UNIT ROUTINE Care 05/26/19 19:51 Ordered Vital Signs [RC] Q4H Care 05/26/19 19:51 Ordered Heart Healthy Diet [DIET] Diet 05/26/19 Dinner Ordered TROPONIN I [CHEM] Routine Lab 05/26/19 21:30 Ordered UA RFX BARAK AND CULT IF INDIC [URIN] Stat Lab 05/26/19 18:18 Ordered Acetaminophen [Tylenol] Med 05/26/19 19:51 Ordered 650 mg PO Q4H PRN Albuterol/Ipratropium [DuoNeb 3.0-0.5 MG/3 ML] Med 05/26/19 19:51 Ordered 3 ml NEB Q4HRRT PRN Aspirin Med 05/26/19 21:00 Ordered 81 mg PO BEDTIME Metoprolol Tartrate [Lopressor] Med 05/26/19 20:00 Ordered 25 mg PO Q12H Sodium Chloride 0.9% [Normal Saline] 1,000 ml Med 05/26/19 18:30 Active IV STAT atorvaSTATin [Lipitor] Med 05/26/19 21:00 Ordered 40 mg PO BEDTIME Medication Orders Acetaminophen (Tylenol) 650 mg PO Q4H PRN PRN Reason: Pain (Mild 1-3)/fever Albuterol/Ipratropium (Duoneb 3.0-0.5 Mg/3 Ml) 3 ml NEB Q4HRRT PRN PRN Reason: Shortness Of Breath/wheezing Aspirin (Aspirin) 81 mg PO BEDTIME CARA Atorvastatin Calcium (Lipitor) 40 mg PO BEDTIME CARA Sodium Chloride (Normal Saline) 1,000 mls @ 125 mls/hr IV STAT CARA Metoprolol Tartrate (Lopressor) 25 mg PO Q12H CARA Assessment/Plan Comment:: 79 y/o F admitted syncope, hypokalemia Currently asymptomatic Troponin negative, EKG shows sinus arrhythmia. 2D ECHO done in APR 16 shows EF 35 to 40%. US carotid shows possible vertebral artery stenosis, needs further characterization by MRA brain. 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
[2019-05-26] MEDS: Aspirin 81 MG Tab.Chew PO SCH (21:06)
[2019-05-26] MEDS: atorvaSTATin 40 MG Tab PO SCH (21:06)
[2019-05-26] MEDS: Metoprolol Tartrate 25 MG Tab PO SCH (21:06)
[2019-05-26] MEDS ORDERED: Magnesium Oxide 400 MG Tab PO ONE (23:37)
[2019-05-27 06:23] LABS: BLOOD UREA NITROGEN,BUN 11 mg/dL (7.0-18.0); CARBON DIOXIDE,CO2 26.5 mmol/L (21.0-32.0); CHLORIDE,CL 109 mmol/L (98-107); GLUCOSE RANDOM 111 mg/dL (74-106); POTASSIUM,K 3.3 mmol/L (3.5-5.1); SODIUM,NA 146 mmol/L (136-145)
[2019-05-27] MEDS: Furosemide 40 MG Tab PO SCH (08:07)
[2019-05-27] MEDS: Clopidogrel 75 MG Tab PO SCH (08:08)
[2019-05-27] MEDS: Metoprolol Tartrate 25 MG Tab PO SCH ×2 (08:57→20:21)
--- NOTE | 2019-05-27 11:12 | PCM.PN ---
- General Info Date of Service: 05/27/19 Admission Dx/Problem (Free Text): Admission Diagnosis/Problem Admission Diagnosis/Problem Syncope and collapse Subjective Update: feeling improved today. No chest pain or SOB. No further syncopal episodes. Intermittent dizziness but this is improved as well. Reports change in bowel habits over the last 3 months or so. She reports it is not necessarily diarrhea, but she goes multiple times during the day 3-4, denies black or bloody stools, but it is more loose than normal. Can't tie it to any diet changes. No fevers or chills. Functional Status: Reports: Pain Controlled, Tolerating Diet, Ambulating, Urinating - Review of Systems General: Reports: No Symptoms. Denies: Fever, Weakness HEENT: Reports: No Symptoms. Denies: Headaches, Visual Changes Pulmonary: Reports: No Symptoms. Denies: Shortness of Breath Cardiovascular: Reports: No Symptoms. Denies: Chest Pain Gastrointestinal: Reports: Diarrhea ( loose stools.). Denies: Abdominal Pain, Nausea, Vomiting Genitourinary: Reports: No Symptoms. Denies: Dysuria, Frequency, Burning Musculoskeletal: Reports: No Symptoms Neurological: Reports: No Symptoms Psychiatric: Reports: No Symptoms - Patient Data Vitals - Most Recent: Last Vital Signs Temp 98.6 F 05/27/19 07:53 Pulse 58 L 05/27/19 07:53 Resp 14 05/27/19 07:53 BP 112/46 L 05/27/19 07:53 Pulse Ox 98 05/27/19 07:53 Weight - Most Recent: 81.647 kg I&O - Last 24 Hours: Intake & Output 05/26/19 05/27/19 05/27/19 22:59 06:59 14:59 Intake Total 1025 Output Total 700 Balance 325 Lab Results Last 24 Hours: Laboratory Results - last 24 hr 05/26/19 05/26/19 05/26/19 Range/Units 18:23 18:23 18:23 WBC 7.52 (4.0-11.0) K/uL RBC 4.67 (4.30-5.90) M/uL Hgb 9.8 L (12.0-16.0) g/dL Hct 34.0 L (36.0-46.0) % MCV 72.8 L (80.0-98.0) fL MCH 21.0 L (27.0-32.0) pg MCHC 28.8 L (31.0-37.0) g/dL RDW Std Deviation 51.8 (28.0-62.0) fl RDW Coeff of Tray 20 H (11.0-15.0) % Plt Count 274 (150-400) K/uL MPV 9.10 (7.40-12.00) fL Neut % (Auto) 67.1 (48.0-80.0) % Lymph % (Auto) 22.9 (16.0-40.0) % [place] % (Auto) 6.0 (0.0-15.0) % Eos % (Auto) 3.5 (0.0-7.0) % Baso % (Auto) 0.5 (0.0-1.5) % Neut # (Auto) 5.1 (1.4-5.7) K/uL Lymph # (Auto) 1.7 (0.6-2.4) K/uL [place] # (Auto) 0.5 (0.0-0.8) K/uL Eos # (Auto) 0.3 (0.0-0.7) K/uL Baso # (Auto) 0.0 (0.0-0.1) K/uL Nucleated RBC % 0.0 /100WBC Nucleated RBCs # 0 K/uL INR 0.98 Sodium 144 (136-145) mmol/L Potassium 2.6 L (3.5-5.1) mmol/L Chloride 103 (98-107) mmol/L Carbon Dioxide 25.1 (21.0-32.0) mmol/L BUN 12 (7.0-18.0) mg/dL Creatinine 1.0 (0.6-1.0) mg/dL Est Cr Clr Drug Dosing TNP Estimated GFR (MDRD) 53.5 ml/min Glucose 194 H (74-106) mg/dL Calcium 8.8 (8.5-10.1) mg/dL Phosphorus (2.6-4.7) mg/dL Magnesium (1.8-2.4) mg/dL Total Bilirubin 0.6 (0.2-1.0) mg/dL AST 25 (15-37) IU/L ALT 26 (14-63) IU/L Alkaline Phosphatase 85 (46-116) U/L Troponin I < 0.050 (0.000-0.056) ng/mL Total Protein 7.4 (6.4-8.2) g/dL Albumin 3.6 (3.4-5.0) g/dL Globulin 3.8 (2.6-4.0) g/dL Albumin/Globulin Ratio 0.9 (0.9-1.6) Urine Color Urine Appearance Urine pH (5.0-8.0) Ur Specific [place] (1.001-1.035) Urine Protein (NEGATIVE) mg/dL Urine Glucose (UA) (NEGATIVE) mg/dL Urine Ketones (NEGATIVE) mg/dL Urine Occult Blood (NEGATIVE) Urine Nitrite (NEGATIVE) Urine Bilirubin (NEGATIVE) Urine Urobilinogen (<2.0) EU/dL Ur Leukocyte Esterase (NEGATIVE) 05/26/19 05/26/19 05/27/19 Range/Units 18:23 21:33 02:56 WBC (4.0-11.0) K/uL RBC (4.30-5.90) M/uL Hgb (12.0-16.0) g/dL Hct (36.0-46.0) % MCV (80.0-98.0) fL MCH (27.0-32.0) pg MCHC (31.0-37.0) g/dL RDW Std Deviation (28.0-62.0) fl RDW Coeff of Tray (11.0-15.0) % Plt Count (150-400) K/uL MPV (7.40-12.00) fL Neut % (Auto) (48.0-80.0) % Lymph % (Auto) (16.0-40.0) % [place] % (Auto) (0.0-15.0) % Eos % (Auto) (0.0-7.0) % Baso % (Auto) (0.0-1.5) % Neut # (Auto) (1.4-5.7) K/uL Lymph # (Auto) (0.6-2.4) K/uL [place] # (Auto) (0.0-0.8) K/uL Eos # (Auto) (0.0-0.7) K/uL Baso # (Auto) (0.0-0.1) K/uL Nucleated RBC % /100WBC Nucleated RBCs # K/uL INR Sodium (136-145) mmol/L Potassium (3.5-5.1) mmol/L Chloride (98-107) mmol/L Carbon Dioxide (21.0-32.0) mmol/L BUN (7.0-18.0) mg/dL Creatinine (0.6-1.0) mg/dL Est Cr Clr Drug Dosing Estimated GFR (MDRD) ml/min Glucose (74-106) mg/dL Calcium (8.5-10.1) mg/dL Phosphorus (2.6-4.7) mg/dL Magnesium 1.9 (1.8-2.4) mg/dL Total Bilirubin (0.2-1.0) mg/dL AST (15-37) IU/L ALT (14-63) IU/L Alkaline Phosphatase (46-116) U/L Troponin I < 0.050 (0.000-0.056) ng/mL Total Protein (6.4-8.2) g/dL Albumin (3.4-5.0) g/dL Globulin (2.6-4.0) g/dL Albumin/Globulin Ratio (0.9-1.6) Urine Color YELLOW Urine Appearance CLEAR Urine pH 6.0 (5.0-8.0) Ur Specific [place] 1.020 (1.001-1.035) Urine Protein NEGATIVE (NEGATIVE) mg/dL Urine Glucose (UA) NEGATIVE (NEGATIVE) mg/dL Urine Ketones NEGATIVE (NEGATIVE) mg/dL Urine Occult Blood NEGATIVE (NEGATIVE) Urine Nitrite NEGATIVE (NEGATIVE) Urine Bilirubin NEGATIVE (NEGATIVE) Urine Urobilinogen 0.2 (<2.0) EU/dL Ur Leukocyte Esterase NEGATIVE (NEGATIVE) 05/27/19 05/27/19 Range/Units 05:25 05:25 WBC 8.10 (4.0-11.0) K/uL RBC 3.91 L (4.30-5.90) M/uL Hgb 8.2 L (12.0-16.0) g/dL Hct 28.3 L (36.0-46.0) % MCV 72.4 L (80.0-98.0) fL MCH 21.0 L (27.0-32.0) pg MCHC 29.0 L (31.0-37.0) g/dL RDW Std Deviation 51.9 (28.0-62.0) fl RDW Coeff of Tray 19 H (11.0-15.0) % Plt Count 284 (150-400) K/uL MPV 9.40 (7.40-12.00) fL Neut % (Auto) 66.3 (48.0-80.0) % Lymph % (Auto) 23.0 (16.0-40.0) % [place] % (Auto) 7.4 (0.0-15.0) % Eos % (Auto) 2.8 (0.0-7.0) % Baso % (Auto) 0.5 (0.0-1.5) % Neut # (Auto) 5.4 (1.4-5.7) K/uL Lymph # (Auto) 1.9 (0.6-2.4) K/uL [place] # (Auto) 0.6 (0.0-0.8) K/uL Eos # (Auto) 0.2 (0.0-0.7) K/uL Baso # (Auto) 0.0 (0.0-0.1) K/uL Nucleated RBC % 0.0 /100WBC Nucleated RBCs # 0 K/uL INR Sodium 146 H (136-145) mmol/L Potassium 3.3 L (3.5-5.1) mmol/L Chloride 109 H (98-107) mmol/L Carbon Dioxide 26.5 (21.0-32.0) mmol/L BUN 11 (7.0-18.0) mg/dL Creatinine 0.9 (0.6-1.0) mg/dL Est Cr Clr Drug Dosing 39.74 Estimated GFR (MDRD) > 60.0 ml/min Glucose 111 H (74-106) mg/dL Calcium 8.6 (8.5-10.1) mg/dL Phosphorus 2.4 L (2.6-4.7) mg/dL Magnesium 2.0 (1.8-2.4) mg/dL Total Bilirubin (0.2-1.0) mg/dL AST (15-37) IU/L ALT (14-63) IU/L Alkaline Phosphatase (46-116) U/L Troponin I (0.000-0.056) ng/mL Total Protein (6.4-8.2) g/dL Albumin (3.4-5.0) g/dL Globulin (2.6-4.0) g/dL Albumin/Globulin Ratio (0.9-1.6) Urine Color Urine Appearance Urine pH (5.0-8.0) Ur Specific [place] (1.001-1.035) Urine Protein (NEGATIVE) mg/dL Urine Glucose (UA) (NEGATIVE) mg/dL Urine Ketones (NEGATIVE) mg/dL Urine Occult Blood (NEGATIVE) Urine Nitrite (NEGATIVE) Urine Bilirubin (NEGATIVE) Urine Urobilinogen (<2.0) EU/dL Ur Leukocyte Esterase (NEGATIVE) Med Orders - Current: Current Medications Acetaminophen (Tylenol) 650 mg PO Q4H PRN PRN Reason: Pain (Mild 1-3)/fever Albuterol/Ipratropium (Duoneb 3.0-0.5 Mg/3 Ml) 3 ml NEB Q4HRRT PRN PRN Reason: Shortness Of Breath/wheezing Aspirin (Aspirin) 81 mg PO BEDTIME [facility] Last Admin: 05/26/19 21:06 Dose: 81 mg Atorvastatin Calcium (Lipitor) 40 mg PO BEDTIME [facility] Last Admin: 05/26/19 21:06 Dose: 40 mg Clopidogrel Bisulfate (Plavix) 75 mg PO DAILY [facility] Last Admin: 05/27/19 08:08 Dose: 75 mg Furosemide (Lasix) 40 mg PO DAILY [facility] Last Admin: 05/27/19 08:07 Dose: 40 mg Metoprolol Tartrate (Lopressor) 25 mg PO Q12H [facility] Last Admin: 05/27/19 08:57 Dose: Not Given Discontinued Medications Sodium Chloride (Normal Saline) 1,000 mls @ 125 mls/hr IV STAT [facility] Stop: 05/27/19 00:00 Last Admin: 05/26/19 18:50 Dose: 125 mls/hr Magnesium Oxide (Magnesium Oxide) 400 mg PO ONETIME ONE Stop: 05/26/19 23:38 Last Admin: 05/27/19 00:57 Dose: 400 mg Potassium Chloride (Klor-Con M20) 20 meq PO ONETIME ONE Stop: 05/26/19 19:10 Last Admin: 05/26/19 20:12 Dose: 20 meq Potassium Chloride (Klor-Con M20) 20 meq PO ONETIME ONE Stop: 05/26/19 19:55 Last Admin: 05/26/19 21:06 Dose: 20 meq - Exam General: Alert, Oriented, Cooperative, No Acute Distress Lungs: Clear to Auscultation, Normal Respiratory Effort Cardiovascular: Regular Rate, Regular Rhythm GI/Abdominal Exam: Normal Bowel Sounds, Soft, Non-Tender Extremities: Normal Inspection, Normal Range of Motion, Non-Tender Psy/Mental Status: Alert, Normal Affect, Normal Mood Sepsis Event Note - Evaluation Sepsis Screening Result: No Definite Risk - Focused Exam Vital Signs: Vital Signs Temp Pulse Resp BP Pulse Ox 05/27/19 07:53 98.6 F 58 L 14 112/46 L 98 05/27/19 03:45 97.3 F 55 L 16 122/44 L 94 L 05/27/19 01:15 97.9 F 57 L 14 136/61 94 L Date Exam was Performed: 05/27/19 Time Exam was Performed: 14:16 - Problem List & Annotations (1) Syncope and collapse SNOMED Code(s): 630361342 Code(s): R55 - SYNCOPE AND COLLAPSE Status: Acute Current Visit: Yes (2) Loose stools SNOMED Code(s): 474662386 Code(s): R19.5 - OTHER FECAL ABNORMALITIES Status: Acute Current Visit: Yes (3) Anemia SNOMED Code(s): 692973101 Code(s): D64.9 - ANEMIA, UNSPECIFIED Status: Acute Current Visit: Yes (4) Congestive heart failure SNOMED Code(s): 73255730 Code(s): I50.9 - HEART FAILURE, UNSPECIFIED Status: Chronic Current Visit : No Qualifiers: Heart failure type: unspecified Heart failure chronicity: chronic Qualified Code(s): I50.9 - Heart failure, unspecified (5) AAA (abdominal aortic aneurysm) SNOMED Code(s): 304698114 Code(s): I71.4 - ABDOMINAL AORTIC ANEURYSM, WITHOUT RUPTURE Status: Chronic Current Visit: Yes Qualifiers: Presence of rupture: without rupture Qualified Code(s): I71.4 - Abdominal aortic aneurysm, without rupture (6) H/O endovascular stent graft for abdominal aortic aneurysm SNOMED Code(s): 758478017405233 Code(s): Z95.828 - PRESENCE OF OTHER VASCULAR IMPLANTS AND GRAFTS Status: Chronic Current Visit: Yes (7) CAD (coronary artery disease) SNOMED Code(s): 29902107 Code(s): I25.10 - ATHSCL HEART DISEASE OF [place] CORONARY ARTERY W/O ANG PCTRS Status: Chronic Current Visit: Yes (8) Hx of CABG SNOMED Code(s): 499593620, 343745411 Code(s): Z95.1 - PRESENCE OF AORTOCORONARY BYPASS GRAFT Status: Chronic Current Visit: Yes (9) HTN (hypertension) SNOMED Code(s): 18086667 Code(s): I10 - ESSENTIAL (PRIMARY) HYPERTENSION Status: Chronic Current Visit: Yes (10) HLD (hyperlipidemia) SNOMED Code(s): 32328482 Code(s): E78.5 - HYPERLIPIDEMIA, UNSPECIFIED Status: Chronic Current Visit: Yes (11) Pre-diabetes SNOMED Code(s): 454819569 Code(s): R73.03 - PREDIABETES Status: Chronic Current Visit: Yes (12) Anxiety SNOMED Code(s): 81184861 Code(s): F41.9 - ANXIETY DISORDER, UNSPECIFIED Status: Chronic Current Visit: Yes - Problem List Review Problem List Initiated/Reviewed/Updated: Yes - My Orders Last 24 Hours: My Active Orders 05/27/19 07:58 Ang Head wo Cont [MR] Routine Ang Neck w Cont [MR] Routine Brain w wo Cont [MR] Routine 05/27/19 09:54 C DIFFICILE AG/TOXIN W/REFLEX [RM] Routine STOOL CULTURE/SHIGA TOXIN [MREF] Routine - Plan Plan:: 79 y/o F admitted syncope, hypokalemia 1. Syncope: No events overnight, telemetry remains SR, with PVCs. 2D ECHO done in APR 16 shows EF 35 to 40%. US carotid 05/04/2019 shows possible vertebral artery stenosis, needs further characterization by MRA brain. Dizziness likely secondary to vertebral artery insufficiency. MRI brain and MRA head and neck pending today. I did speak with Dr Wong regarding admission. He has been attempting to obtain angiogram for Hailey, but spoke with senior player services representative in [place] due to aortic grafting. They noted anemia and recommended follow up with GI for colonoscopy to rule out colon cancer. I did mention this to Hailey this morning, due to her change in bowel habits over the last three months. She has not had colonoscopy to her recollection. Due to her severity of CAD and comorbidities, will refer to GI in [place] to perform colonoscopy. I will order stool studies and hemoccult today. Positive hemoccult in February 2019, 05/01 samples. 2. HTN, CHF, HLD, CAD: Stable, will restart home meds and statin along with Plavix. Monitor electrolytes. Magnesium stable, will give 40 KCL this morning. 3. Anxiety: Stable, continue Paxil. VTE prophylaxis: SCDs, ambulation. Dispo: 1 day
[2019-05-27] MEDS ORDERED: Potassium Chloride 20 MEQ Tab.ER PO ONE (11:13)
[2019-05-27] MEDS ORDERED: Gadobenate Dimeglumine 529 MG/ML 20 ML SDV IVPUSH STA (14:22)
--- NOTE | 2019-05-27 18:18 | MR ---
MR angiogram of brain Technique: [id number] MRA angiogram study was obtained centered to the [place]. Reconstructed MIP images were obtained in multiple projections. Findings: Study is slightly limited due to motion. Distal vertebral arteries and basilar artery are patent. Distal internal carotid arteries appear to be patent. Proximal middle cerebral arteries are patent. Small size of the proximal left anterior cerebral artery is noted. Right proximal anterior cerebral artery is patent. Uncertain if this narrowing is developmental or is due to atherosclerotic change. No additional stenosis is appreciated. Impression: 1. Small size of the proximal left anterior cerebral artery. As mentioned above, uncertain if this is due to a small artery on a developmental basis or represents atherosclerotic narrowing. 2. No other areas of definite stenosis or occlusion is seen. Diagnostic code #2 Study was dictated in [place] Standard Time
--- NOTE | 2019-05-27 18:18 | MR ---
MRI brain Technique: T1 sagittal and coronal; T1, T2, FLAIR and diffusion axial. Comparison: Prior head CT study of 05/26/19. Findings: Motion artifact is seen. This limits details of the exam. Ventricles along with basal cisterns and sulci the convexities are within normal limits for the patient's age. Mild areas of increased signal is scattered within the subcortical and periventricular white matter most likely due to small vessel ischemic demyelination change. No other abnormal signal is definitely appreciated within the brain. Mild mucosal thickening is seen in maxillary sinuses. Normal signal void is seen within the major cerebral arteries within the skull base. No acute diffusion abnormalities are appreciated. Impression: 1. Senescent change as noted above. 2. No acute diffusion abnormalities are seen. 3. Study somewhat limited due to motion artifact. Diagnostic code #2 Study was dictated in [place] Standard Time
--- NOTE | 2019-05-27 18:18 | MR ---
Angiogram of neck Technique: [id number] MR angiogram study was obtained centered to the carotid bifurcation. Without contrast this study is limited for evaluation of neck vessels. Comparison: Prior carotid ultrasound study of 05/05/19. Findings: This study is uninterpretable for accurate evaluation of the neck vessels. No charge should be made for this study. Impression: 1. Findings as noted above. Diagnostic code #2 Study was dictated in [place] Standard Time
[2019-05-27] MEDS: Aspirin 81 MG Tab.Chew PO SCH (20:22)
[2019-05-27] MEDS: atorvaSTATin 40 MG Tab PO SCH (20:22)
[2019-05-28] MEDS ORDERED: Melatonin 3 MG Tab PO ONE (00:43)
[2019-05-28 06:34] LABS: BLOOD UREA NITROGEN,BUN 18 mg/dL (7.0-18.0); CARBON DIOXIDE,CO2 25.9 mmol/L (21.0-32.0); CHLORIDE,CL 107 mmol/L (98-107); GLUCOSE RANDOM 116 mg/dL (74-106); POTASSIUM,K 3.4 mmol/L (3.5-5.1); SODIUM,NA 144 mmol/L (136-145)
[2019-05-28] MEDS ORDERED: Potassium Chloride 20 MEQ Tab.ER PO ONE (08:11)
[2019-05-28] MEDS: Furosemide 40 MG Tab PO SCH (08:55)
[2019-05-28] MEDS: Clopidogrel 75 MG Tab PO SCH (08:56)
[2019-05-28 09:04] VITALS: BP 130/60; PULSE 49
[2019-05-28] MEDS: Metoprolol Tartrate 25 MG Tab PO SCH (09:41)
--- NOTE | 2019-05-28 11:32 | PCM.DCSUM1 ---
Discharge Summary - Hospital Course Brief History: Patient is a 79 y/o F with PMH of CABG, CAD, Multiple aortic aneurysm s/p graft 3 years back, systolic CHF, possible vertebral artery stenosis who comes in for evaluation of Syncope. Patient states she has She states she has been feeling dizzy over several occasions but never had syncope. Today she was walking in a parking lot when she felt dizzy and passed out. Patient doesn't remember detail of the episode, although states she felt very "shaky and weak" . No evidence of head injury. Upon Arrival she was alert, denied no fever nausea vomiting chills sweats no chest pain, shortness of breath , headache dizziness or palpitation no bowel or urine symptoms. In the ER most of the lab work showed Hb 9.7, and hypokalemia, EKG shows sinus arrhythmia. Patient is being admitted for further management. Diagnosis: Stroke: No - Discharge Data Discharge Date: 05/28/19 Discharge Disposition: Home, Self-Care 01 Condition: Good - Referral to Home Health Primary Care Physician: PCP Unobtainable - Discharge Diagnosis/Problem(s) (1) Syncope and collapse SNOMED Code(s): 411491934 ICD Code: R55 - SYNCOPE AND COLLAPSE Status: Acute (2) Loose stools SNOMED Code(s): 657945733 ICD Code: R19.5 - OTHER FECAL ABNORMALITIES Status: Acute (3) Anemia SNOMED Code(s): 035888025 ICD Code: D64.9 - ANEMIA, UNSPECIFIED Status: Acute (4) Congestive heart failure SNOMED Code(s): 04956098 ICD Code: I50.9 - HEART FAILURE, UNSPECIFIED Status: Chronic Qualifiers: Heart failure type: unspecified Heart failure chronicity: chronic Qualified Code(s): I50.9 - Heart failure, unspecified (5) AAA (abdominal aortic aneurysm) SNOMED Code(s): 188827689 ICD Code: I71.4 - ABDOMINAL AORTIC ANEURYSM, WITHOUT RUPTURE Status: Chronic Qualifiers: Presence of rupture: without rupture Qualified Code(s): I71.4 - Abdominal aortic aneurysm, without rupture (6) H/O endovascular stent graft for abdominal aortic aneurysm SNOMED Code(s): 291806402995833 ICD Code: Z95.828 - PRESENCE OF OTHER VASCULAR IMPLANTS AND GRAFTS Status: Chronic (7) CAD (coronary artery disease) SNOMED Code(s): 62820399 ICD Code: I25.10 - ATHSCL HEART DISEASE OF [place] CORONARY ARTERY W/O ANG PCTRS Status: Chronic (8) Hx of CABG SNOMED Code(s): 340227206, 397053735 ICD Code: Z95.1 - PRESENCE OF AORTOCORONARY BYPASS GRAFT Status: Chronic (9) HTN (hypertension) SNOMED Code(s): 38165764 ICD Code: I10 - ESSENTIAL (PRIMARY) HYPERTENSION Status: Chronic (10) HLD (hyperlipidemia) SNOMED Code(s): 20312883 ICD Code: E78.5 - HYPERLIPIDEMIA, UNSPECIFIED Status: Chronic (11) Pre-diabetes SNOMED Code(s): 179483882 ICD Code: R73.03 - PREDIABETES Status: Chronic (12) Anxiety SNOMED Code(s): 42244734 ICD Code: F41.9 - ANXIETY DISORDER, UNSPECIFIED Status: Chronic - Patient Instructions Diet: Heart Healthy Diet Activity: As Tolerated Driving: Do Not Drive Showering/Bathing: May Shower Notify Provider of: Fever, Increased Pain, Swelling and Redness, Drainage, Nausea and/or Vomiting - Discharge Plan *PRESCRIPTION DRUG MONITORING PROGRAM REVIEWED*: Not Applicable *COPY OF PRESCRIPTION DRUG MONITORING REPORT IN PATIENT MELITON: Not Applicable Home Medications: Home Meds Clopidogrel Bisulfate [Clopidogrel] 75 mg PO DAILY 05/26/19 [History] Furosemide 40 mg PO DAILY 05/26/19 [History] PARoxetine [Paxil] 10 mg PO DAILY 05/27/19 [History] Potassium Chloride 8 meq PO DAILY 05/27/19 [History] atorvaSTATin [Lipitor] 40 mg PO DAILY 05/27/19 [History] Metoprolol Tartrate [Lopressor] 12.5 mg PO Q12H tablet 05/28/19 [Rx] Oxygen Therapy Mode: Room Air Patient Handouts: Syncope, [id number] Referrals: Baron Wong MD [Physician] - (The clinic will call you with an appointment with Dr Peñaloza) Saumya Nunez MD [Physician] - 06/04/19 1:30 pm - Discharge Summary/Plan Comment DC Time >30 min.: No Discharge Summary/Plan Comment: Admitting Diagnoses: Syncope Discharge Diagnoses: Syncope- resolved Other PMH: Anemia CHF AAA with grafting CAD Hx CABG HTN HLD Pre DM Anxiety Hailey was admitted and monitored on telemetry. Initial EKG reports Afib, but when examined this appeared to be SR with PVCs. Throughout her stay she was SR with PVCs no further dizziness noted. MRI/MRA of head and neck obtained to review vertebral stenosis found on outpatient carotid US. No noted intracerebral arterial stenosis, neck MRA unclear due to motion. She will have follow up set up with Dr Wong as well as Vascular surgery in [facility]. She and farzad report she has surgery scheduled for fixing of her AAA graft leak at the end of May. We will fax information to [place]. She will be placed on Zio patch prior to follow up with Dr Wong. During her stay, bradycardia noted in the 40s, Metoprolol cut in half to 12.5 mg BID. Stool studies obtained Cdiff negative, hemoccult positive. She has had previous positive with Dr Wong, he and cardiology recommended follow up with colonoscopy to rule out colon ca prior to further cardiac workup. Referral sent to El[facility] for this follow up. She is to return to the ED or clinic if concerns should arise. - Patient Data Vitals - Most Recent: Last Vital Signs Temp 97.2 F 05/28/19 08:00 Pulse 49 L 05/28/19 09:41 Resp 16 05/28/19 08:00 BP 130/60 05/28/19 08:00 Pulse Ox 96 05/28/19 08:00 Weight - Most Recent: 81.647 kg I&O - Last 24 hours: Intake & Output 05/27/19 05/28/19 05/28/19 22:59 06:59 14:59 Intake Total 940 500 Output Total 2050 700 Balance -1110 -200 Lab Results - Last 24 hrs: Laboratory Results - last 24 hr 05/28/19 05/28/19 Range/Units 05:30 05:30 WBC 7.56 (4.0-11.0) K/uL RBC 3.93 L (4.30-5.90) M/uL Hgb 8.3 L (12.0-16.0) g/dL Hct 28.5 L (36.0-46.0) % MCV 72.5 L (80.0-98.0) fL MCH 21.1 L (27.0-32.0) pg MCHC 29.1 L (31.0-37.0) g/dL RDW Std Deviation 52.2 (28.0-62.0) fl RDW Coeff of Tray 20 H (11.0-15.0) % Plt Count 273 (150-400) K/uL MPV 9.30 (7.40-12.00) fL Neut % (Auto) 61.7 (48.0-80.0) % Lymph % (Auto) 23.8 (16.0-40.0) % [place] % (Auto) 8.6 (0.0-15.0) % Eos % (Auto) 5.2 (0.0-7.0) % Baso % (Auto) 0.7 (0.0-1.5) % Neut # (Auto) 4.7 (1.4-5.7) K/uL Lymph # (Auto) 1.8 (0.6-2.4) K/uL [place] # (Auto) 0.7 (0.0-0.8) K/uL Eos # (Auto) 0.4 (0.0-0.7) K/uL Baso # (Auto) 0.1 (0.0-0.1) K/uL Nucleated RBC % 0.0 /100WBC Nucleated RBCs # 0 K/uL Sodium 144 (136-145) mmol/L Potassium 3.4 L (3.5-5.1) mmol/L Chloride 107 (98-107) mmol/L Carbon Dioxide 25.9 (21.0-32.0) mmol/L BUN 18 (7.0-18.0) mg/dL Creatinine 0.9 (0.6-1.0) mg/dL Est Cr Clr Drug Dosing 39.74 mL/min Estimated GFR (MDRD) > 60.0 ml/min Glucose 116 H (74-106) mg/dL Calcium 8.8 (8.5-10.1) mg/dL BARAK Results - Last 24 hrs: Microbiology 05/28/19 09:54 C. difficile Antigen & Toxins A,B - Final Stool / Feces 05/28/19 09:54 Stool Occult Blood (BARAK) - Final Stool / Feces POSITIVE OCCULT BLOOD REFERENCE RANGE: NEGATIVE Med Orders - Current: Current Medications Acetaminophen (Tylenol) 650 mg PO Q4H PRN PRN Reason: Pain (Mild 1-3)/fever Last Admin: 05/28/19 04:34 Dose: 650 mg Albuterol/Ipratropium (Duoneb 3.0-0.5 Mg/3 Ml) 3 ml NEB Q4HRRT PRN PRN Reason: Shortness Of Breath/wheezing Aspirin (Aspirin) 81 mg PO BEDTIME [facility] Last Admin: 05/27/19 20:22 Dose: 81 mg Atorvastatin Calcium (Lipitor) 40 mg PO BEDTIME [facility] Last Admin: 05/27/19 20:22 Dose: 40 mg Clopidogrel Bisulfate (Plavix) 75 mg PO DAILY [facility] Last Admin: 05/28/19 08:56 Dose: 75 mg Furosemide (Lasix) 40 mg PO DAILY [facility] Last Admin: 05/28/19 08:55 Dose: 40 mg Metoprolol Tartrate (Lopressor) 25 mg PO Q12H [facility] Last Admin: 05/28/19 09:41 Dose: Not Given Paroxetine HCl (Paxil) 10 mg PO DAILY [facility] Last Admin: 05/28/19 08:56 Dose: 10 mg Discontinued Medications Gadobenate Dimeglumine (Multihance) 20 ml IVPUSH ONETIME STA Stop: 05/27/19 14:23 Last Admin: 05/27/19 17:33 Dose: Not Given Sodium Chloride (Normal Saline) 1,000 mls @ 125 mls/hr IV STAT [facility] Stop: 05/27/19 00:00 Last Admin: 05/26/19 18:50 Dose: 125 mls/hr Magnesium Oxide (Magnesium Oxide) 400 mg PO ONETIME ONE Stop: 05/26/19 23:38 Last Admin: 05/27/19 00:57 Dose: 400 mg Melatonin (Melatonin) 3 mg PO BEDTIME ONE Stop: 05/28/19 00:44 Last Admin: 05/28/19 00:58 Dose: 3 mg Potassium Chloride (Klor-Con M20) 20 meq PO ONETIME ONE Stop: 05/26/19 19:10 Last Admin: 05/26/19 20:12 Dose: 20 meq Potassium Chloride (Klor-Con M20) 20 meq PO ONETIME ONE Stop: 05/26/19 19:55 Last Admin: 05/26/19 21:06 Dose: 20 meq Potassium Chloride (Klor-Con M20) 40 meq PO ONETIME ONE Stop: 05/27/19 11:14 Last Admin: 05/27/19 11:39 Dose: 40 meq Potassium Chloride (Klor-Con M20) 40 meq PO ONETIME ONE Stop: 05/28/19 08:12 Last Admin: 05/28/19 08:59 Dose: 40 meq
== END 2019-05-28 13:10 | disposition home or self-care (01) ==
LOC: MW.ED 18:16 → MW.MS 19:17
PROVIDERS: ADMIT Student in an Organized Health Care Education/Training Program; ATTEND Student in an Organized Health Care Education/Training Program
DX: R55 Syncope and collapse (principal); I25.10 Atherosclerotic heart disease of native coronary artery without angina pectoris; I11.0 Hypertensive heart disease with heart failure; I50.9 Heart failure, unspecified; E78.00 Pure hypercholesterolemia, unspecified; E87.6 Hypokalemia; I49.9 Cardiac arrhythmia, unspecified; R19.5 Other fecal abnormalities; D64.9 Anemia, unspecified; I71.4 Abdominal aortic aneurysm, without rupture; R73.03 Prediabetes; F41.9 Anxiety disorder, unspecified; Z95.1 Presence of aortocoronary bypass graft; Z88.5 Allergy status to narcotic agent; Z79.899 Other long term (current) drug therapy; Z79.02 Long term (current) use of antithrombotics/antiplatelets; Z87.891 Personal history of nicotine dependence; Z95.828 Presence of other vascular implants and grafts
CPT/HCPCS: 36415; 70450; 70544; 70547; 70551; 71045; 72170; 80048; 80053; 81003; 82272; 83735; 84100; 84484; 85025; 85610; 87045; 87046; 87324; 87899; 93005; 96360; 96361; 99285; A9270; G0378; J7030; 99283

== ENCOUNTER 2019-10-30 12:56 | Emergency (ER) | payer MEDICARE, OTHER ==
[2019-10-30] MEDS ORDERED: Lactated Ringers 1,000 ML IV ONE (13:00)
[2019-10-30] MEDS ORDERED: Sodium Chloride 0.9% 10 ML Syringe FLUSH PRN (13:00)
[2019-10-30] MEDS ORDERED: Sodium Chloride 0.9% 2.5 ML Syringe FLUSH PRN (13:00)
[2019-10-30 13:15] VITALS: BP 143/53
[2019-10-30 13:31] LABS: BLOOD UREA NITROGEN,BUN 26 mg/dL (7.0-18.0); CHLORIDE,CL 101 mmol/L (98-107); GLUCOSE RANDOM 145 mg/dL (74-106); POTASSIUM,K 3.7 mmol/L (3.5-5.1); SODIUM,NA 137 mmol/L (136-145)
--- NOTE | 2019-10-30 13:31 | EDM.PDOC ---
ED HPI GENERAL MEDICAL PROBLEM - General Chief Complaint: Neurological Problem Stated Complaint: STROKE CODE Time Seen by Provider: 10/30/19 12:58 Source of Information: Reports: Patient, EMS History Limitations: Reports: No Limitations - History of Present Illness INITIAL COMMENTS - FREE TEXT/NARRATIVE: 79-year-old confused female with history of syncope, CHF, CAD, HTN, HLD, a bdominal aortic aneurysm repaired with stent graft was brought in by ambulance for strokelike symptoms. The family noticed that she was exhibiting expressive aphasia and weakness that has progressed since last night, with last known well around 8 PM, EMS noted facial droop. Blood glucose = 154. She complains of mild headache, cough, LUQ pain. EMS states that she recently had an AICD placed at [facility] about a week ago. ROS: Limited secondary to clinical condition and confusion. PHYSICAL EXAM General: mild distress, confused, ill appearing. HEENT: dry mucous membrane Neck: supple, no meningismus, no Kernig or Brudzinski Cardiac: S1S2 tachycardia Chest wall: left chest wall AICD site mild ttp/swelling Respiratory: CTAB, no crackles or rales, no wheezing Abdomen: Soft, LUQ ttp, no rebound or guarding, nondistended, no pulsatile mass. Back: nontender Musculoskeletal: NVI distally, no deformity Neuro: confused, expressive aphasia. facial droop. NIHSS = 10. Treatments CLINICAL STATISTICS MANAGER: Reports: IV/IO - Related Data Allergies Allergy/AdvReac Type Severity Reaction Status Date / Time codeine Allergy Agitation Verified 10/30/19 13:15 Home Meds: Home Meds Clopidogrel Bisulfate [Clopidogrel] 75 mg PO DAILY 05/26/19 [History] Furosemide 40 mg PO DAILY 05/26/19 [History] PARoxetine [Paxil] 10 mg PO DAILY 05/27/19 [History] Potassium Chloride 8 meq PO DAILY 05/27/19 [History] atorvaSTATin [Lipitor] 40 mg PO DAILY 05/27/19 [History] Metoprolol Tartrate [Lopressor] 12.5 mg PO Q12H tablet 05/28/19 [Rx] Past Medical History HEENT History: Reports: None Other HEENT History: wears reading glasses but not with her Cardiovascular History: Reports: Aneurysm, Bypass, High Cholesterol, Hypertension, Other (See Below) Other Cardiovascular History: was at [facility] one week ago and had a "new procedure where they tied off 4 aortic aneurysms" Respiratory History: Reports: Other (See Below) Other Respiratory History: wears O2 at 1L per NC at night Gastrointestinal History: Reports: None Genitourinary History: Reports: None LEACHER History: Reports: None Musculoskeletal History: Reports: None Neurological History: Reports: None Psychiatric History: Reports: Anxiety, Depression Endocrine/Metabolic History: Reports: None Hematologic History: Reports: None Immunologic History: Reports: None Oncologic (Cancer) History: Reports: None Dermatologic History: Reports: None - Infectious Disease History Infectious Disease History: Reports: None - Past Surgical History Head Surgeries/Procedures: Reports: None HEENT Surgical History: Reports: None Respiratory Surgical History: Reports: None GI Surgical History: Reports: None Female Surgical History: Reports: None Neurological Surgical History: Reports: None Musculoskeletal Surgical History: Reports: None Social & Family History - Family History Family Medical History: Noncontributory - Tobacco Use Smoking Status *Q: Unknown Ever Smoked - Caffeine Use Caffeine Use: Reports: Coffee ED ROS GENERAL - Review of Systems Review Of Systems: See Below (limited secondary to AMS) Reason Not Obtained: Limited secondary to clinical presentation and confusion. ED EXAM, NEURO - Physical Exam Exam: See Below (see dictation) EKG INTERPRETATION EKG Interpretation Comments: 81 Bpm, NSR, normal QRS interval, no STEMI. EKG and rhythm strip interpreted by me at 1337 178 Bpm, Afib wtih RVR, normal QRS interval, no STEMI. EKG and rhythm strip interpreted by me at 1848 *Q Meaningful Use (ADM) - VTE *Q VTE Criteria *Q: - Stroke *Q Stroke Criteria *Q: 3 Thrombolytic/Fibrinolytic Contraindications Stroke *Q: Med/TX Not Indicated/Need Course - Vital Signs Last Recorded V/S: Last Vital Signs Temp 99.4 F 10/30/19 19:49 Pulse 77 10/30/19 16:00 Resp 36 H 10/30/19 16:00 BP 143/53 H 10/30/19 13:06 Pulse Ox 93 L 10/30/19 16:00 - Orders/Labs/Meds Labs: Laboratory Tests 10/30/19 10/30/19 10/30/19 Range/Units 12:56 12:56 12:56 WBC 16.06 H (4.0-11.0) K/uL RBC 4.07 L (4.30-5.90) M/uL Hgb 9.0 L (12.0-16.0) g/dL Hct 30.5 L (36.0-46.0) % MCV 74.9 L (80.0-98.0) fL MCH 22.1 L (27.0-32.0) pg MCHC 29.5 L (31.0-37.0) g/dL RDW Std Deviation 48.3 (28.0-62.0) fl RDW Coeff of Tray 18 H (11.0-15.0) % Plt Count 220 (150-400) K/uL MPV 9.10 (7.40-12.00) fL Add Manual Diff YES Neutrophils % (Manual) 86 H (48.0-80.0) % Band Neutrophils % 6 % Lymphocytes % (Manual) 7 L (16.0-40.0) % Monocytes % (Manual) 1 (0.0-15.0) % Nucleated RBC % 0.0 /100WBC Absolute Seg Neuts 13.8 H (1.4-5.7) Band Neutrophils # 1.0 Lymphocytes # (Manual) 1.1 (0.6-2.4) Monocytes # (Manual) 0.2 (0.0-0.8) Nucleated RBCs # 0 K/uL INR 1.16 APTT 30.7 (18.6-31.3) SEC Lactate 2.0 (0.20-2.00) mmol/L Sodium (136-145) mmol/L Potassium (3.5-5.1) mmol/L Chloride (98-107) mmol/L Carbon Dioxide (21.0-32.0) mmol/L BUN (7.0-18.0) mg/dL Creatinine (0.6-1.0) mg/dL Est Cr Clr Drug Dosing mL/min Estimated GFR (MDRD) ml/min Glucose (74-106) mg/dL Calcium (8.5-10.1) mg/dL Phosphorus (2.6-4.7) mg/dL Magnesium (1.8-2.4) mg/dL Total Bilirubin (0.2-1.0) mg/dL AST (15-37) IU/L ALT (14-63) IU/L Alkaline Phosphatase (46-116) U/L Troponin I (0.000-0.056) ng/mL C-Reactive Protein (0.00-0.90) mg/dL B-Natriuretic Peptide (<100) PG/ML Total Protein (6.4-8.2) g/dL Albumin (3.4-5.0) g/dL Globulin (2.6-4.0) g/dL Albumin/Globulin Ratio (0.9-1.6) Lipase (73-393) U/L Procalcitonin (<0.10) ng/mL Urine Color Urine Appearance Urine pH (5.0-8.0) Ur Specific Malcolm (1.001-1.035) Urine Protein (NEGATIVE) mg/dL Urine Glucose (UA) (NEGATIVE) mg/dL Urine Ketones (NEGATIVE) mg/dL Urine Occult Blood (NEGATIVE) Urine Nitrite (NEGATIVE) Urine Bilirubin (NEGATIVE) Urine Urobilinogen (<2.0) EU/dL Ur Leukocyte Esterase (NEGATIVE) Urine RBC (0-2/HPF) Urine WBC (0-5/HPF) Ur Epithelial Cells (NONE-FEW) Urine Bacteria (NEGATIVE) Ethyl Alcohol mg/dL SARS Virus RNA (PCR) (NEGATIVE) 10/30/19 10/30/19 10/30/19 Range/Units 12:56 12:56 12:56 WBC (4.0-11.0) K/uL RBC (4.30-5.90) M/uL Hgb (12.0-16.0) g/dL Hct (36.0-46.0) % MCV (80.0-98.0) fL MCH (27.0-32.0) pg MCHC (31.0-37.0) g/dL RDW Std Deviation (28.0-62.0) fl RDW Coeff of Tray (11.0-15.0) % Plt Count (150-400) K/uL MPV (7.40-12.00) fL Add Manual Diff Neutrophils % (Manual) (48.0-80.0) % Band Neutrophils % % Lymphocytes % (Manual) (16.0-40.0) % Monocytes % (Manual) (0.0-15.0) % Nucleated RBC % /100WBC Absolute Seg Neuts (1.4-5.7) Band Neutrophils # Lymphocytes # (Manual) (0.6-2.4) Monocytes # (Manual) (0.0-0.8) Nucleated RBCs # K/uL INR APTT (18.6-31.3) SEC Lactate (0.20-2.00) mmol/L Sodium 137 (136-145) mmol/L Potassium 3.7 (3.5-5.1) mmol/L Chloride 101 (98-107) mmol/L Carbon Dioxide 25.0 (21.0-32.0) mmol/L BUN 26 H (7.0-18.0) mg/dL Creatinine 1.4 H (0.6-1.0) mg/dL Est Cr Clr Drug Dosing 25.77 mL/min Estimated GFR (MDRD) 36.3 ml/min Glucose 145 H (74-106) mg/dL Calcium 8.4 L (8.5-10.1) mg/dL Phosphorus 2.6 (2.6-4.7) mg/dL Magnesium 1.9 (1.8-2.4) mg/dL Total Bilirubin 1.3 H (0.2-1.0) mg/dL AST 25 (15-37) IU/L ALT 21 (14-63) IU/L Alkaline Phosphatase 74 (46-116) U/L Troponin I < 0.050 (0.000-0.056) ng/mL C-Reactive Protein 13.60 H (0.00-0.90) mg/dL B-Natriuretic Peptide (<100) PG/ML Total Protein 7.0 (6.4-8.2) g/dL Albumin 3.5 (3.4-5.0) g/dL Globulin 3.5 (2.6-4.0) g/dL Albumin/Globulin Ratio 1.0 (0.9-1.6) Lipase 36 L (73-393) U/L Procalcitonin 17.70 H (<0.10) ng/mL Urine Color Urine Appearance Urine pH (5.0-8.0) Ur Specific Malcolm (1.001-1.035) Urine Protein (NEGATIVE) mg/dL Urine Glucose (UA) (NEGATIVE) mg/dL Urine Ketones (NEGATIVE) mg/dL Urine Occult Blood (NEGATIVE) Urine Nitrite (NEGATIVE) Urine Bilirubin (NEGATIVE) Urine Urobilinogen (<2.0) EU/dL Ur Leukocyte Esterase (NEGATIVE) Urine RBC (0-2/HPF) Urine WBC (0-5/HPF) Ur Epithelial Cells (NONE-FEW) Urine Bacteria (NEGATIVE) Ethyl Alcohol <3 mg/dL SARS Virus RNA (PCR) (NEGATIVE) 10/30/19 10/30/19 10/30/19 Range/Units 12:58 14:10 14:15 WBC (4.0-11.0) K/uL RBC (4.30-5.90) M/uL Hgb (12.0-16.0) g/dL Hct (36.0-46.0) % MCV (80.0-98.0) fL MCH (27.0-32.0) pg MCHC (31.0-37.0) g/dL RDW Std Deviation (28.0-62.0) fl RDW Coeff of Tray (11.0-15.0) % Plt Count (150-400) K/uL MPV (7.40-12.00) fL Add Manual Diff Neutrophils % (Manual) (48.0-80.0) % Band Neutrophils % % Lymphocytes % (Manual) (16.0-40.0) % Monocytes % (Manual) (0.0-15.0) % Nucleated RBC % /100WBC Absolute Seg Neuts (1.4-5.7) Band Neutrophils # Lymphocytes # (Manual) (0.6-2.4) Monocytes # (Manual) (0.0-0.8) Nucleated RBCs # K/uL INR APTT (18.6-31.3) SEC Lactate (0.20-2.00) mmol/L Sodium (136-145) mmol/L Potassium (3.5-5.1) mmol/L Chloride (98-107) mmol/L Carbon Dioxide (21.0-32.0) mmol/L BUN (7.0-18.0) mg/dL Creatinine (0.6-1.0) mg/dL Est Cr Clr Drug Dosing mL/min Estimated GFR (MDRD) ml/min Glucose (74-106) mg/dL Calcium (8.5-10.1) mg/dL Phosphorus (2.6-4.7) mg/dL Magnesium (1.8-2.4) mg/dL Total Bilirubin (0.2-1.0) mg/dL AST (15-37) IU/L ALT (14-63) IU/L Alkaline Phosphatase (46-116) U/L Troponin I (0.000-0.056) ng/mL C-Reactive Protein (0.00-0.90) mg/dL B-Natriuretic Peptide 629 H (<100) PG/ML Total Protein (6.4-8.2) g/dL Albumin (3.4-5.0) g/dL Globulin (2.6-4.0) g/dL Albumin/Globulin Ratio (0.9-1.6) Lipase (73-393) U/L Procalcitonin (<0.10) ng/mL Urine Color YELLOW Urine Appearance SLT CLOUDY Urine pH 5.5 (5.0-8.0) Ur Specific Malcolm <= 1.005 (1.001-1.035) Urine Protein TRACE H (NEGATIVE) mg/dL Urine Glucose (UA) NEGATIVE (NEGATIVE) mg/dL Urine Ketones NEGATIVE (NEGATIVE) mg/dL Urine Occult Blood MODERATE H (NEGATIVE) Urine Nitrite NEGATIVE (NEGATIVE) Urine Bilirubin NEGATIVE (NEGATIVE) Urine Urobilinogen 0.2 (<2.0) EU/dL Ur Leukocyte Esterase NEGATIVE (NEGATIVE) Urine RBC 10-15 (0-2/HPF) Urine WBC 0-2 (0-5/HPF) Ur Epithelial Cells FEW (NONE-FEW) Urine Bacteria FEW (NEGATIVE) Ethyl Alcohol mg/dL SARS Virus RNA (PCR) NEGATIVE (NEGATIVE) Meds: Medications Discontinued Medications Generic Name Dose Route Start Last Admin Trade Name Freq PRN Reason Stop Dose Admin Acetaminophen 1,000 mg 10/30/19 18:16 10/30/19 18:24 Tylenol Extra Strength PO 10/30/19 18:17 1,000 mg ONETIME ONE Administration Diltiazem HCl Confirm 10/30/19 18:51 10/30/19 19:06 Diltiazem Administered 10/30/19 18:52 Not Given Dose 25 mg .ROUTE .STK-MED ONE Diltiazem HCl 25 mg 10/30/19 19:01 10/30/19 19:06 Diltiazem IVPUSH 10/30/19 19:02 25 mg ONETIME ONE Administration Diltiazem HCl 20 mg 10/30/19 19:02 10/30/19 19:06 Diltiazem IVPUSH 10/30/19 19:03 20 mg ONETIME ONE Administration Diltiazem HCl Confirm 10/30/19 18:59 10/30/19 19:06 Diltiazem Administered 10/30/19 19:00 Not Given Dose 25 mg .ROUTE .STK-MED ONE Diltiazem HCl Confirm 10/30/19 19:03 10/30/19 19:07 Diltiazem Administered 10/30/19 19:04 Not Given Dose 25 mg .ROUTE .STK-MED ONE Lactated Ringer's 1,000 mls @ 999 mls/hr 10/30/19 13:00 10/30/19 13:43 Ringers, Lactated IV 10/30/19 14:00 999 mls/hr .BOLUS ONE Administration Piperacillin Sod/Tazobactam 50 mls @ 100 mls/hr 10/30/19 16:54 10/30/19 17:08 Sod 3.375 gm/ Sodium Chloride IV 10/30/19 17:23 100 mls/hr ONETIME ONE Administration Vancomycin HCl 1.25 gm/ Sodium 250 mls @ 166.667 mls/hr 10/30/19 17:45 10/30/19 18:11 Chloride IV 166.667 mls/hr Q12H CARA Administration Sodium Chloride 1,000 mls @ 999 mls/hr 10/30/19 19:08 10/30/19 19:47 Normal Saline IV 10/30/19 20:08 999 mls/hr .Bolus ONE Administration Nicardipine HCl 40 mg in 200 mls @ 25 mls/hr 10/30/19 19:15 Cardene 40 Mg In Ns 200 Ml IV TITRATE CARA Protocol 5 MG/HR Nicardipine HCl Confirm 10/30/19 19:11 10/30/19 19:46 Cardene 20 Mg In Ns 200 Ml Administered 10/30/19 19:12 Not Given Dose 20 mg in 200 mls @ as directed .ROUTE .STK-MED ONE Sodium Chloride Confirm 10/30/19 19:26 10/30/19 19:46 Normal Saline Administered 10/30/19 19:27 5 mls/hr Dose Administration 100 mls @ as directed .ROUTE .STK-MED ONE Diltiazem HCl 100 mg/ Sodium 120 mls @ 6 mls/hr 10/30/19 19:30 Chloride IV NOW CARA Protocol 5 MG/HR Sodium Chloride Confirm 10/30/19 19:32 10/30/19 19:48 Normal Saline Administered 10/30/19 19:33 Not Given Dose 100 mls @ as directed .ROUTE .STK-MED ONE Sodium Chloride Confirm 10/30/19 20:08 10/31/19 12:39 Normal Saline Administered 10/30/19 20:09 Not Given Dose 100 mls @ as directed .ROUTE .STK-MED ONE Iopamidol 100 ml 10/30/19 13:34 10/30/19 13:35 Isovue-370 (76%) IVPUSH 10/30/19 13:35 100 ml ONETIME ONE Administration Sodium Chloride 10 ml 10/30/19 13:00 10/30/19 13:44 Saline Flush FLUSH 10 ml ASDIRECTED PRN Administration Keep Vein Open Sodium Chloride 2.5 ml 10/30/19 13:00 10/30/19 13:44 Saline Flush FLUSH 2.5 ml ASDIRECTED PRN Administration Keep Vein Open Vancomycin HCl 1,224.705 mg 10/30/19 17:00 10/30/19 19:51 Vancomycin 15 mg/kg (1224.705 mg) Not Given IV Q12H [facility] - Re-Assessments/Exams Free Text/Narrative Re-Assessment/Exam: 10/30/19 13:55 - tPA was considered but withheld due to prolonged last known well time 10/30/19 18:13 - patient will require transfer to [facility] for the continuation of care given possible postop complication from AICD placement [address] [facility], and the need for learning consultant services unavailable at this facility. MRI and [facility] is [facility]. Any emergency conditions have been stabilized to the ability of the ED prior to the transfer. 10/30/19 18:45 - patient now exhibiting tachycardia with heart rate in the 160s, EKG performed. Demonstrating Afib with RVR at 178 bpm, ordered 20 mg IV Cardizem. 10/30/19 18:55 - heart rate unchanged, will re-bolused 25 mg IV Cardizem. 10/30/19 19:10 -discussed with Nate Ferguson transfer [place], they will page leadership coach Dr. Boyle for consultation. Heart rate now in the 140s, placed on a Cardizem drip at 5 mg/h. 10/30/19 19:21 -discussed with Nate Ferguson Dr. (cardiology) and Dr. Gonsalez (ICU). Dr. Juan Ramon Ledesma recommends continuing Cardizem drip. Dr. Gonsalez will accept patient to ICU. 10/30/19 19:30 -I reexamined the patient, she is more lucid now, she is able to communicate with me, she is now complaining of pain to the surgical site. Patient is satting 93% on 2 L nasal cannula. 10/30/19 19:42 - Flight ETA arrival in 10minutes. I now have the chance to discuss her presentation with her son, who states that yesterday she was acting confused and had difficulty getting her words out. She was also complaining of pain to the left chest wall for about 2 days. Son does note that she does have a history of atrial fibrillation. Departure - Departure Time of Disposition: 19:13 Disposition: DC/Tfer to Other 70 Condition: Critical Clinical Impression: Stroke, Sepsis - Discharge Information *PRESCRIPTION DRUG MONITORING PROGRAM REVIEWED*: Not Applicable *COPY OF PRESCRIPTION DRUG MONITORING REPORT IN PATIENT MELITON: Not Applicable Referrals: PCP,Not In Area [Primary Care Provider] - Forms: ED Department Discharge Critical Care Note - Critical Care Note Total Time (mins): 76 Comments: Critical Care: The high probability of sudden, clinically significant deterioration in the patient's condition required the highest level of my preparedness to intervene urgently. The services I provided to this patient were to treat and/or prevent clinically significant deterioration. Services included the following: chart data review, reviewing nursing notes and/or old charts, documentation time, learning consultant collaboration regarding findings and treatment options, medication orders and management, direct patient care, vital sign assessments and ordering, interpreting and reviewing diagnostic studies/lab tests. Aggregate critical care time includes only time during which I was engaged in work directly related to the patient's care, as described above, whether at the bedside or elsewhere in the Emergency Department. It did not include time spent performing other reported procedures or the services of residents, students, nurses or physician assistants. Frequent interventions and/or frequent repeat evaluations were required as well as counseling and coordination of care regarding prognosis, treatments, and discussions with patient, staff and consultants. Critical Care (excluding other procedures): 76 minutes Sepsis Event Note (ED) - Evaluation Sepsis Screening Result: Possible Severe Sepsis Risk
[2019-10-30] MEDS ORDERED: Iopamidol 755 Mg/ML 100 ML Bottle IVPUSH ONE (13:34)
--- NOTE | 2019-10-30 13:44 | CT ---
Head CT Technique: Multiple axial sections through the brain were obtained. Intravenous contrast was not utilized. Comparison: Prior head CT study of 05/26/19. Findings: Ventricles along with basal cisterns and sulci over the convexities are within normal limits for the patient's age. No abnormal parenchymal densities are seen. No evidence of intracranial hemorrhage. No midline shift or mass-effect is seen. Opacified left maxillary sinus is seen. Other visualized sinuses show nothing acute. No acute mastoid sinus findings are seen. Atherosclerotic calcifications are seen within the carotid siphon. No acute calvarial finding is noted. Impression: 1. Opacified left maxillary sinus. 2. Slight senescent change. No acute intracranial abnormality is seen. Diagnostic code #2 This report was dictated in MDT
--- NOTE | 2019-10-30 13:51 | CT ---
CT angiogram of brain Technique: Multiple axial sections through the brain were obtained. Intravenous contrast was given. Study performed in the arterial phase with multiple MIP images than being obtained. Comparison: Previous MR angiogram of the brain dated 06/18/19. Findings: Atherosclerotic change is seen within the carotid siphon. Carotid siphon is patent into the middle and anterior cerebral arteries. Both vertebral arteries are patent into the basilar artery. Posterior cerebral arteries are felt to be patent. No focal stenosis or occlusion is seen. No discrete aneurysm is appreciated. Impression: 1. Atherosclerotic change within the carotid siphon. 2. Posterior, anterior and middle cerebral arteries appear patent. No focal stenosis or occlusion is seen. Diagnostic code #2 This report was dictated in MDT
--- NOTE | 2019-10-30 13:56 | CT ---
CT angiogram of neck Technique: Multiple axial sections through the neck were obtained. Intravenous contrast was utilized in the arterial phase. Multiple MIP images were then obtained of the neck. Findings: Vertebral arteries are patent. Common carotid arteries appear to be patent. Atherosclerotic calcification is seen within the left carotid bulb. Calcification extends into the proximal left internal carotid artery. Mild stenosis noted within the proximal left internal carotid artery at around 20 percent narrowing. Internal carotid artery is otherwise patent. Minimal atherosclerotic calcification within the right carotid bulb. No focal stenosis is seen within the right internal carotid artery. Impression: 1. Atherosclerotic change within both carotid bulbs and proximal internal carotid arteries. 2. Mild stenosis within the proximal left internal carotid artery at around 20 percent. 3. No additional stenosis is seen. No occlusion is seen. Diagnostic code #2 This report was dictated in MDT
--- NOTE | 2019-10-30 14:10 | CR ---
Chest: Portable view of the chest was obtained. Comparison: Prior chest x-ray of 05/26/19. Heart is enlarged. Tortuous thoracic aorta is seen. Sternotomy is noted. Stent is present within the aorta. Bichamber pacemaker or AICD is noted. Lungs show no acute parenchymal change. Impression: 1. Cardiomegaly. Other findings as noted above. 2. Nothing acute is appreciated. Diagnostic code #2 This report was dictated in MDT
[2019-10-30 16:02] VITALS: PULSE 77
--- NOTE | 2019-10-30 16:27 | CT ---
CT chest Technique: Multiple axial sections through the chest were obtained. Intravenous contrast not utilized as 100 mL of contrast was performed earlier on the same day. Comparison prior chest CT of 05/04/19. Findings: Stent is noted within the descending thoracic aorta which is mildly aneurysmal. Findings appear similar to the previous exam. Heart is mildly enlarged. Artifact is noted from AICD. Mediastinum and hilar region show no adenopathy. Atherosclerotic calcification is noted within the aorta. Previous sternotomy is noted for CABG. Respiratory motion is seen. Within this limitation, lungs are grossly clear. Bone window settings were reviewed which shows mild scattered degenerative change within the spine without acute osseous finding. Impression: 1.: Nonacute findings as noted above. No change from previous chest CT. Diagnostic code #2 This report was dictated in MDT
[2019-10-30] MEDS ORDERED: Piperacillin/Tazobactam 3.375 GM in Sodium Chloride 0.9% 50 ML IV ONE (16:54)
[2019-10-30] MEDS ORDERED: Vancomycin 500 MG SDV IV SCH (17:00)
--- NOTE | 2019-10-30 17:20 | CT ---
CT abdomen and pelvis Technique: Multiple axial sections were obtained from above the dome of the diaphragm inferiorly to the mid pelvis. Intravenous and oral contrast not utilized. Comparison: Prior CT abdomen study of 05/04/19. Findings: Abdominal aortic aneurysm is seen. Aortoiliac stent is seen within this aneurysm. Aneurysm appears stable in size. Contrast is seen within the kidney collecting system from prior CT angiogram of neck and brain. Liver contains no focal abnormality. Spleen appears within normal limits. Left kidney shows a cyst measuring approximately 1.5 cm in size. No additional abnormality is appreciated within the kidneys. Pancreas appears within normal limits. No retroperitoneal adenopathy or mesenteric abnormalities are appreciated. Bone window settings were reviewed which show no acute osseous finding. Mild degenerative change is scattered within the spine most prominent within the apophyseal joints. Impression: 1. Stable abdominal aortic aneurysm which contains an endovascular stent. 2. Other nonacute findings as noted above. Diagnostic code #2 This report was dictated in MDT MTDD
[2019-10-30] MEDS ORDERED: Acetaminophen 500 MG Tab PO ONE (18:16)
[2019-10-30] MEDS ORDERED: Diltiazem 25 MG/5 ML SDV ONE ×3 (18:51→19:03)
[2019-10-30] MEDS ORDERED: Diltiazem 25 MG/5 ML SDV IVPUSH ONE ×2 (19:01→19:02)
[2019-10-30] MEDS ORDERED: Sodium Chloride 0.9% 1,000 ML IV ONE (19:08)
[2019-10-30] MEDS ORDERED: niCARdipine/Normal Saline 20 MG/200 ML BAG ONE (19:11)
[2019-10-30] MEDS ORDERED: niCARdipine/Normal Saline 40 MG/200 ML BAG IV SCH (19:15)
[2019-10-30] MEDS ORDERED: Sodium Chloride 0.9% 100 ML ONE ×3 (19:26→20:08)
[2019-10-30] MEDS ORDERED: Diltiazem 100 MG in Sodium Chloride 0.9% 100 ML IV SCH (19:30)
== END 2019-10-30 20:15 | disposition other institution (70) ==
LOC: EEVIPCON 12:56 → MW.ED 12:56
DX: I63.9 Cerebral infarction, unspecified (principal); A41.9 Sepsis, unspecified organism; R65.20 Severe sepsis without septic shock; I11.0 Hypertensive heart disease with heart failure; I50.9 Heart failure, unspecified; I25.10 Atherosclerotic heart disease of native coronary artery without angina pectoris; E78.5 Hyperlipidemia, unspecified; F41.9 Anxiety disorder, unspecified; F32.9 Major depressive disorder, single episode, unspecified; Z88.5 Allergy status to narcotic agent; Z79.02 Long term (current) use of antithrombotics/antiplatelets; Z79.899 Other long term (current) drug therapy; Z20.828 Contact with and (suspected) exposure to other viral communicable diseases
CPT/HCPCS: 36415; 51702; 70450; 70496; 70498; 71045; 71250; 74150; 80053; 80307; 81001; 83605; 83690; 83735; 83880; 84100; 84145; 84484; 85025; 85610; 85730; 86140; 87040; 87077; 87088; 87186; 93005; 96365; 96366; 96367; 96375; 99291; A9270; J2543; J3370; J3490; J7030; J7050; J7120; Q9967; U0002; 93010; 99292